=== PATIENT | female | born 1940 | race Hispanic/Latino ===

== ENCOUNTER 2017-06-01 09:49 | Emergency (ER) | payer OTHER ==
[2017-06-01 12:33] LABS: #Basophils 0.1 thou/uL (0.0-0.2); #Eosinphils 0.2 thou/uL (0.0-0.7); #Lymphocytes 2.3 thou/uL (1.20-3.40); #Monocytes 0.5 thou/uL (0.11-0.59); #Neutrophils 5.1 thou/uL (1.40-6.50); %Eosinophils 1.9 % (0.0-10.0); %Lymphocytes 28.5 % (21.0-51.0); %Monocytes 6.5 % (0.0-10.0); Hematocrit 41.8 % (36.0-47.0); Mean Platelet Volume 6.8 fL (7.4-10.4); Red Blood Cell (RBC) Count 4.68 mill/uL (4.20-5.40); White Blood Cell (WBC) Count 8.2 thou/uL (4.8-10.8)
[2017-06-01 13:01] LABS: ALT (SGPT) 20 U/L (8-55); AST (SGOT) 22 U/L (5-34); Alkaline Phosphatase 78 U/L (40-150); Anion Gap 12 mmol/L (10-20); BUN (Urea Nitrogen) 15 mg/dL (9.8-20.1); Bilirubin, Total 0.5 mg/dL (0.2-1.2); Calc. Creatinine Clearance 0 mL/min (70-130); Calcium 9.5 mg/dL (7.8-10.44); Carbon Dioxide 26 mmol/L (23-31); Chloride 103 mmol/L (98-107); Estimated GFR-MDRD 54; Globulin 4.1 g/dL (2.4-3.5); Lipase 89 U/L (8-78)
[2017-06-01 13:47] LABS: Bilirubin Negative (Negative); Blood, Urine Negative (Negative); Glucose, Urine (Dipstick) >=1000 mg/dL (Negative); Ketone, Urine Negative (Negative); Nitrite Negative (Negative); Protein, Urine (Dipstick) Negative (Neg-Trace); Urobilinogen 0.2 mg/dL (0.2-1.0)
[2017-06-01 13:49] LABS: Bacteria/HPF 1+ HPF (None Seen); Hyaline Casts/LPF 0-3 HYALINE CAST LPF (0-3 Hyaline)
--- NOTE | 2017-06-01 14:00 | RAD ---
3 VIEWS RIGHT FOOT: Date: 06/01/17 HISTORY: Wound to bilateral feet. Wounds are turning purple. FINDINGS: Toes are held in flexion, which limits evaluation, but no fracture or dislocation is seen. No defini te osseous destruction is appreciated. Tiny posterior and plantar calcaneal enthesophytes are identi fied. IMPRESSION: No acute osseous abnormality seen. If there is concern for osteomyelitis, MRI is recommended for fur ther evaluation. POS: JOHANN
== END 2017-06-01 14:55 | disposition home or self-care (01) ==
LOC: ERS 09:49
DX: E11.621 Type 2 diabetes mellitus with foot ulcer (principal); N39.0 Urinary tract infection, site not specified; E78.5 Hyperlipidemia, unspecified; I10 Essential (primary) hypertension; F32.9 Major depressive disorder, single episode, unspecified; Z79.899 Other long term (current) drug therapy
CPT/HCPCS: 36416; 80053; 81003; 81015; 82010; 83690; 85025; 87077; 87086

== ENCOUNTER 2019-01-23 11:07 | Emergency (ER) | payer OTHER ==
[2019-01-23 12:10] LABS: #Basophils 0.1 thou/uL (0.0-0.2); #Eosinphils 0.2 thou/uL (0.0-0.7); #Lymphocytes 1.7 thou/uL (1.20-3.40); #Monocytes 0.5 thou/uL (0.11-0.59); #Neutrophils 4.9 thou/uL (1.40-6.50); %Basophils 0.7 % (0.0-1.0); %Eosinophils 2.8 % (0.0-10.0); %Lymphocytes 23.6 % (21.0-51.0); %Monocytes 6.2 % (0.0-10.0); %Neutrophils 66.7 % (42.0-75.0); Hemoglobin 13.6 g/dL (12.0-16.0); Mean Corpuscular HGB CONC 34.5 g/dL (32.0-36.0); Mean Corpuscular Hemoglobin 30.4 pg (27.0-31.0); Mean Corpuscular Volume 88.1 fL (78.0-98.0); Mean Platelet Volume 7.6 fL (7.4-10.4); Platelet Count 350 thou/uL (130-400); RBC Distribution Width 11.6 % (11.5-14.5); Red Blood Cell (RBC) Count 4.46 mill/uL (4.20-5.40); White Blood Cell (WBC) Count 7.4 thou/uL (4.8-10.8)
[2019-01-23 12:32] LABS: ALT (SGPT) 20 U/L (8-55); AST (SGOT) 15 U/L (5-34); Albumin 3.9 g/dL (3.4-4.8); Alkaline Phosphatase 114 U/L (40-150); Anion Gap 13 mmol/L (10-20); BUN (Urea Nitrogen) 20 mg/dL (9.8-20.1); Bilirubin, Total 0.5 mg/dL (0.2-1.2); Calc. Creatinine Clearance 0 mL/min (70-130); Calcium 9.8 mg/dL (7.8-10.44); Carbon Dioxide 24 mmol/L (23-31); Chloride 98 mmol/L (98-107); Estimated GFR-MDRD 40; Globulin 3.7 g/dL (2.4-3.5); Potassium 4.8 mmol/L (3.5-5.1); Protein, Total 7.6 g/dL (6.0-8.3); Sodium 130 mmol/L (136-145)
[2019-01-23 12:42] LABS: Glucose 584 mg/dL (83-110)
[2019-01-23 13:47] LABS: Bilirubin Negative (Negative); Blood, Urine Negative (Negative); Clarity CLEAR (Clear); Glucose, Urine (Dipstick) >=1000 mg/dL (Negative); Leukocyte Negative (Negative); Nitrite Negative (Negative); Protein, Urine (Dipstick) Negative (Neg-Trace); Specific Gravity, Urine 1.028 (1.002-1.036); Urobilinogen 0.2 mg/dL (0.2-1.0)
[2019-01-23] MEDS ORDERED: HumuLIN 70/30 (300 UNITS/3 ML VIAL) SC SCH (15:00)
--- NOTE | 2019-01-28 10:30 | EKG ---
Test Reason : Blood Pressure : / mmHG Vent. Rate : 070 BPM Atrial Rate : 070 BPM P-R Int : 152 ms QRS Dur : 134 ms QT Int : 428 ms P-R-T Axes : 033 -13 -02 degrees QTc Int : 462 ms Normal sinus rhythm Right bundle branch block Moderate voltage criteria for LVH, may be normal variant Abnormal ECG Confirmed by KEVIN CHO ([id number]), script editor OWEN NAPOLES ([id number]) on 01/28/2019 10:29:59 AM Referred By: Confirmed By:KEVIN CHO
== END 2019-01-23 15:24 | disposition home or self-care (01) ==
LOC: ERS 11:07
DX: E11.65 Type 2 diabetes mellitus with hyperglycemia (principal); E78.5 Hyperlipidemia, unspecified; I10 Essential (primary) hypertension; F32.9 Major depressive disorder, single episode, unspecified; Z79.4 Long term (current) use of insulin; Z79.899 Other long term (current) drug therapy
CPT/HCPCS: 36416; 80053; 81003; 84484; 85025; 93005; 96360; 96361; J1815

== ENCOUNTER 2019-03-21 17:06 | Inpatient (IN) | payer OTHER ==
[2019-03-21 18:15] LABS: #Lymphocytes 1.1 thou/uL (1.20-3.40); #Monocytes 0.8 thou/uL (0.11-0.59); #Neutrophils 11.8 thou/uL (1.40-6.50); %Basophils 0.2 % (0.0-1.0); %Eosinophils 0.2 % (0.0-10.0); %Lymphocytes 7.7 % (21.0-51.0); Mean Corpuscular Hemoglobin 29.8 pg (27.0-31.0); Mean Corpuscular Volume 87.7 fL (78.0-98.0); Mean Platelet Volume 7.1 fL (7.4-10.4); Platelet Count 432 thou/uL (130-400); RBC Distribution Width 11.8 % (11.5-14.5); Red Blood Cell (RBC) Count 4.03 mill/uL (4.20-5.40); White Blood Cell (WBC) Count 13.7 thou/uL (4.8-10.8)
[2019-03-21 18:33] LABS: ALT (SGPT) 13 U/L (8-55); AST (SGOT) 13 U/L (5-34); Albumin 3.8 g/dL (3.4-4.8); Alkaline Phosphatase 113 U/L (40-150); Anion Gap 15 mmol/L (10-20); BUN (Urea Nitrogen) 20 mg/dL (9.8-20.1); Bilirubin, Total 0.6 mg/dL (0.2-1.2); Calc. Creatinine Clearance 0 mL/min (70-130); Calcium 9.8 mg/dL (7.8-10.44); Carbon Dioxide 22 mmol/L (23-31); Chloride 94 mmol/L (98-107); Estimated GFR-MDRD 37; Globulin 4.2 g/dL (2.4-3.5); Glucose 513 mg/dL (83-110); Potassium 4.9 mmol/L (3.5-5.1); Sodium 126 mmol/L (136-145)
[2019-03-21] MEDS ORDERED: Piperacillin/Tazobactam 4.5 GM VIAL ONE (18:36)
--- NOTE | 2019-03-21 18:48 | RAD ---
RIGHT FOOT THREE VIEWS: 03/21/2019 HISTORY: Infection of right foot. COMPARISON: None. FINDINGS: There enthesophyte formation at the insertion of the Achilles tendon and at the origin of the plantar aponeurosis. There is no radiopaque foreign body or subcutaneous gas. No displaced fracture or gregoria dence of dislocation is seen. No discrete bone destruction noted. There is atherosclerotic calcification posterior to the distal tibia. IMPRESSION: Chronic findings, as detailed above. No acute fracture or evidence of dislocation. If there is conc mac for osteomyelitis, MRI advised. POS: JOHANN
[2019-03-21] MEDS ORDERED: Vancomycin HCl 1.25 GM in Sodium Chloride 0.9% 250 ML 250 ML IVPB SCH (19:30)
[2019-03-21] MEDS ORDERED: Ondansetron PF 4 MG/2 ML Vial IVP PRN (20:40)
[2019-03-21] MEDS ORDERED: Ondansetron ODT 4 MG TAB PO PRN (20:40)
[2019-03-21] MEDS ORDERED: Acetaminophen 650 MG Suppository PR PRN (20:40)
[2019-03-21] MEDS ORDERED: Dextrose 50% Abboject 50 ML SYRINGE SLOW IVP PRN (20:49)
[2019-03-21] MEDS ORDERED: Dextrose 5% in Water 1,000 ML IV PRN (20:49)
[2019-03-21] MEDS ORDERED: Prevnar 13-Val Conj/PF 0.5 ML SYRINGE IM ONE (21:15)
--- NOTE | 2019-03-21 21:35 | HP ---
PRIMARY CARE DOCTOR: Lucia Mao MD CODE STATUS: Full code. TIME OF EVALUATION: 8:10 pm. CHIEF COMPLAINT: Right 3rd toe swelling. HISTORY OF PRESENT ILLNESS: This is a 78-year-old female patient with past medical history of diabetes type 2, hyperlipidemia, hypertension, came to the hospital after having a right 3rd toe and foot redness, swelling, tenderness, decreased range of motion due to pain. The symptoms started 5 days now and has been gradually getting worse, symptoms are severe. No clear triggers. No alleviating factors. REVIEW OF SYSTEMS: CONSTITUTIONAL: No fever, chills, or generalized weakness. RESPIRATORY: No cough, sputum production, or shortness of breath. CARDIOVASCULAR: No chest pain or palpitation. GASTROINTESTINAL: No nausea, no vomiting. No diarrhea. SCOUT EXECUTIVE: No dizziness, headache, or feeling lightheaded. GENITOURINARY: No burning urination. EXTREMITIES: No leg swelling except for right lower extremity that has right foot redness, swelling, tenderness, and decreased range of motion due to swelling. All other systems were reviewed and negative except for the findings mentioned above. PAST MEDICAL HISTORY: As reported in HPI. PAST SURGICAL HISTORY: The patient has x2. PSYCHIATRIC HISTORY: Depression. SOCIAL HISTORY: No alcohol. No drugs. No smoking history. FAMILY HISTORY: Mother had diabetes. KNOWN ALLERGIES: No known drug allergies. REPORTED MEDICATIONS: Glipizide and lisinopril. PHYSICAL EXAMINATION: VITAL SIGNS: On presentation, blood pressure 134/64 with heart rate 101, respiratory rate was 18, temperature 98.5, pain was 9/10, oxygen saturation was 97% on room air. GENERAL APPEARANCE: The patient is alert, oriented, in no acute distress. HEENT: Eyes, normal conjunctivae. Moist oral mucosa. Anicteric. No JVD. RESPIRATORY: Bilateral air entry. No rales. No wheezes. Symmetric expansion. CARDIOVASCULAR: Normal rate. Regular rhythm. No murmurs. No gallop. No edema. ABDOMEN: Soft. Normal bowel sounds. MUSCULOSKELETAL: Baseline range of motion and strength except for right lower extremity, right foot has redness, swelling, tenderness, decreased range of motion due to pain. SKIN: Warm, intact. No pallor. No rash. No redness except for the findings described in the musculoskeletal. Capillary refill seems to be intact. NEURO: No evidence of any new focal weakness. Cranial nerves seem to be intact. PSYCH: The patient has good mood. No anxiety. Optimal judgment. IMAGING STUDIES: Foot x-rays reported chronic findings as detailed above. No acute fracture or dislocation. There was concern for osteomyelitis. MRI is advised. LABORATORY DATA: Reviewed. The patient has white count 13.7, hemoglobin 12, MCV 87, platelet count 432, ESR 108. Chemistry; sodium 136, potassium 4.9, chloride 94, carbon dioxide 22, anion gap 15, BUN 20, creatinine 1.39, GFR 37, glucose 513, lactic acid 1.5, calcium 9.8, total bilirubin 0.6. LFTs were negative. C-reactive protein 16.42, globulin 4.2, albumin to globulin ratio 0.9. Beta hydroxybutyrate 0.56. ASSESSMENT AND PLAN: The patient will be placed in the hospital with following medical problems: 1. Acute right lower extremity cellulitis, likely secondary to right 3rd toe nonhealing ulcer. The patient has been started on antibiotics. We will continue for now hydration. We will send cultures. We will adjust per sensitivity. 2. Sepsis. The patient has leukocytosis, tachycardia, source is right lower foot cellulitis. The patient is on antibiotics. Treatment as above. 3. Uncontrolled diabetes, blood sugar is 513. The patient has been started on a sliding scale for optimal control. 4. Chronic kidney disease stage 3 with GFR 37. We will continue to monitor kidney function. If any worsening, might need to consult Nephrology. 5. Hyperlipidemia. Low-cholesterol diet is advised. Reconcile home medications. 6. Uncontrolled hypertension. Blood pressure 185/96. Reconcile home medications. We will adjust treatment as needed. 7. Deep venous thrombosis prophylaxis. Job ID: [id number]
[2019-03-21] MEDS: Sodium Chloride 0.9% 1,000 ML IV SCH (22:56)
[2019-03-21] MEDS: HumaLOG 300 UNITS/3 ML VIAL SC PRN (23:18)
[2019-03-22] MEDS: Acetaminophen 325 MG TAB PO PRN (00:42)
[2019-03-22] MEDS: Piperacillin/Tazobactam 3.375 GM in Sodium Chloride 0.9% 100 ML IVPB SCH ×3 (04:03→20:00)
[2019-03-22 06:34] LABS: #Eosinphils 0.3 thou/uL (0.0-0.7); #Lymphocytes 1.8 thou/uL (1.20-3.40); #Monocytes 0.8 thou/uL (0.11-0.59); #Neutrophils 7.2 thou/uL (1.40-6.50); %Basophils 0.5 % (0.0-1.0); %Lymphocytes 17.7 % (21.0-51.0); %Monocytes 7.9 % (0.0-10.0); %Neutrophils 70.9 % (42.0-75.0); Hemoglobin 10.9 g/dL (12.0-16.0); Mean Corpuscular HGB CONC 34.4 g/dL (32.0-36.0); Mean Corpuscular Hemoglobin 30.2 pg (27.0-31.0); Mean Corpuscular Volume 87.8 fL (78.0-98.0); Mean Platelet Volume 7.1 fL (7.4-10.4); Platelet Count 388 thou/uL (130-400); RBC Distribution Width 11.7 % (11.5-14.5); Red Blood Cell (RBC) Count 3.61 mill/uL (4.20-5.40); White Blood Cell (WBC) Count 10.1 thou/uL (4.8-10.8)
[2019-03-22 06:41] LABS: Anion Gap 13 mmol/L (10-20); BUN (Urea Nitrogen) 14 mg/dL (9.8-20.1); Calc. Creatinine Clearance 51 mL/min (70-130); Calcium 8.7 mg/dL (7.8-10.44); Carbon Dioxide 21 mmol/L (23-31); Chloride 106 mmol/L (98-107); Estimated GFR-MDRD 62; Glucose 157 mg/dL (83-110); Potassium 3.9 mmol/L (3.5-5.1); Sodium 136 mmol/L (136-145)
--- NOTE | 2019-03-22 07:37 | PDOC.HOSPP ---
- Subjective Subjective: Patient seen and examined. No new complaints. No overnight events - Objective Vital Signs & Weight: Vital Signs (12 hours) Temp Pulse Resp BP Pulse Ox 03/22/19 04:00 98.5 F 70 16 103/58 L 95 03/22/19 00:40 99.0 F 85 16 147/66 H 97 03/21/19 20:35 97.7 F 88 16 163/74 H 100 Weight Weight 131 lb 14.4 oz I&O: 03/21/19 03/22/19 03/23/19 06:59 06:59 06:59 Intake Total 1050 Balance 1050 Result Diagrams: 03/22/19 05:47 03/22/19 05:47 Additional Labs: Accuchecks 03/22/19 03/21/19 03/21/19 04:49 21:26 17:43 POC Glucose 157 H 312 H 450 H Radiology Reviewed by me: Yes (right foot) ROS - Review of Systems All systems: All other ROS were reviewed and found negative. Constitutional: denies: fever, chills, sweats, weakness, malaise, other Eyes: denies: pain, vision change, conjunctivae inflammation, eyelid inflammation, redness, other ENT: denies: ear pain, ear discharge, nose pain, nose discharge, nose congestion , mouth pain, mouth swelling, throat pain, throat swelling, other Respiratory: denies: cough, dry, shortness of breath, hemoptysis, SOB with excertion, pleuritic pain, sputum, wheezing, other Cardiovascular: denies: chest pain, palpitations, orthopnea, paroxysmal noc. dyspnea, edema, light headedness, other Gastrointestinal: denies: nausea, vomitting, abdominal pain, diarrhea, constipation, melena, hematochezia, other Genitourinary: denies: dysuria, frequency, incontinence, hematuria, retention, other Musculoskeletal: reports: foot pain. denies: neck pain, shoulder pain, arm pain , back pain, hand pain, leg pain, other - Medication Medications: Active Medications Generic Name Dose Route Start Last Admin Trade Name Freq PRN Reason Stop Dose Admin Acetaminophen 650 mg 03/21/19 20:40 03/22/19 00:42 Tylenol PO 650 mg Q4H PRN Administration Headache/Fever/Mild Pain (1-3) Piperacillin Sod/Tazobactam 100 mls @ 200 mls/hr 03/22/19 04:00 03/22/19 04: 03 Sod 3.375 gm/ Sodium Chloride IVPB 100 mls 0400,1200,2000 KIAH Administration Sodium Chloride 1,000 mls @ 75 mls/hr 03/21/19 21:00 03/21/19 22:56 Normal Saline 0.9% IV 1,000 mls .[id number] KIAH Administration Insulin Human Lispro 0 units 03/21/19 23:07 03/21/19 23:18 Humalog SC 4 units .BEDTIME SLIDING SC PRN Administration Bedtime Correctional Scale - Exam NAD, awake alert Eye: PERRL, anicteric sclera ENT: normocephalic atraumatic, no oropharyngeal lesions Neck: supple, symmetric, no JVD Heart: RRR, no murmur, no gallops, no rubs Respiratory: CTAB, no wheezes, no rales, no ronchi Gastrointestinal: soft, non-tender, non-distended, normal bowel sounds Extremities: no cyanosis, no clubbing (right foot cellulitis, 3rd toe ulcer with dressing) Skin: normal turgor, no lesions Neurological: CN's grossly intact, normal sensation to touch, no focal deficits Musculoskeletal: normal tone, normal strength, no muscle wasting Psychiatric: normal affect, normal behavior, A&O x 3 Hosp A/P (1) ELIS (acute kidney injury) Code(s): N17.9 - ACUTE KIDNEY FAILURE, UNSPECIFIED Status: Acute (2) Cellulitis of right lower extremity Code(s): L03.115 - CELLULITIS OF RIGHT LOWER LIMB Status: Acute (3) Diabetic foot infection Code(s): E11.628 - TYPE 2 DIABETES MELLITUS WITH OTHER SKIN COMPLICATIONS; L08.9 - LOCAL INFECTION OF THE SKIN AND SUBCUTANEOUS TISSUE, UNSP Status: Acute (4) Diabetic ulcer of toe Code(s): E11.621 - TYPE 2 DIABETES MELLITUS WITH FOOT ULCER; L97.509 - NON- PRESSURE CHRONIC ULCER OTH PRT UNSP FOOT W UNSP SEVERITY Status: Acute (5) Hyponatremia Code(s): E87.1 - HYPO-OSMOLALITY AND HYPONATREMIA Status: Acute (6) Sepsis Code(s): A41.9 - SEPSIS, UNSPECIFIED ORGANISM Status: Acute (7) Diabetes type 2, uncontrolled Code(s): E11.65 - TYPE 2 DIABETES MELLITUS WITH HYPERGLYCEMIA Status: Chronic (8) Hypertension Code(s): I10 - ESSENTIAL (PRIMARY) HYPERTENSION Status: Chronic - Plan old records reviewed/req, continue antibiotics continue vancomycin and zosyn wound care medication reviewed as above symptomatic treatment follow culture home medication reconciled continue IVF
[2019-03-22] MEDS: Enoxaparin Sodium 40 MG/0.4 ML SYRINGE SC SCH (08:32)
[2019-03-22] MEDS: glipiZIDE 10 MG TAB PO SCH ×2 (08:32→16:25)
[2019-03-22] MEDS: Sodium Chloride 0.9% 1,000 ML IV SCH (11:01)
[2019-03-22] MEDS: HumaLOG 300 UNITS/3 ML VIAL SC PRN ×3 (13:19→20:01)
--- NOTE | 2019-03-22 15:06 | MRI ---
MRI RIGHT FOREFOOT: Date: 03/22/19 PROVIDED CLINICAL HISTORY: Third digit wound. FINDINGS: Correlation is made with radiograph of 03/21/19. There is signal alteration on T1-weighted and fluid sensitive sequences involving the distal aspects of the third digit distal phalanx. This is presumably in the region of patient wound as marked on the skin surface by the technologist, and is therefore suspicious for osteomyelitis. No additional regional significant marrow signal alteration is evident. Alignment appears anatomic. J oint spaces appear preserved. No regional joint effusion is evident. There is diffuse noncircumscribed fluid signal intensity within the subcutaneous adipose layer about the forefoot, predominating dorsally. There is diffuse fatty infiltration involving the intrinsic rob t musculature. No regional tenosynovitis is evident. The dorsal extensor and plantar flexor tendons d emonstrate a grossly intact MR appearance. IMPRESSION: Signal alteration compatible with osteomyelitis involving the third proximal phalanx. POS: TPC
[2019-03-22] MEDS ORDERED: Vancomycin HCl 1 GM in Premix Bag 1 BAG IVPB SCH (21:00)
[2019-03-23] MEDS: Sodium Chloride 0.9% 1,000 ML IV SCH ×2 (01:07→16:28)
[2019-03-23] MEDS: Piperacillin/Tazobactam 3.375 GM in Sodium Chloride 0.9% 100 ML IVPB SCH ×3 (04:13→20:37)
[2019-03-23 10:36] LABS: Hemoglobin A1c 14.7 % (4.0-6.0)
--- NOTE | 2019-03-23 10:50 | CON ---
DATE OF CONSULTATION: HISTORY OF PRESENT ILLNESS: A 78-year-old female, French speaking only, brought in by friend to the emergency room. Admitted for the hospitalist service for a right diabetic foot infection. She has been using saltwater and at home and presents to the emergency room for further intervention. She is admitted 2 days ago. Plain x-rays were equivocal. MRI obtained today with documented osteomyelitis of the proximal third toe right. The patient, however, has gangrene of this right third toe with cellulitis to her lower leg over the dorsum of the foot. She has severe diabetic infection. She has palpable pedal pulses. I spent 45 minutes with a business editor service with the patient explaining the procedure and recommendations for right third toe and adjacent toe amputations indicated to control this infection with osteomyelitis and a deep infection in order to salvage her foot and leg. We spent a long time with her looking through her directory and phone to try to find her family's phone numbers. What phone numbers we have, there were no answers. The only phone number we have is a friend who brought her to the hospital and that friend will be here at 10:00 a.m. to help find the family. The patient will remain n.p.o. Recommendation is amputation of the right third toe and adjacent toes indicated based on operative findings in order to salvage her foot and leg. She had been explained the risks of infection, bleeding, reoperation, wound had to be left open for healing by secondary intention due to the severe infection. ALLERGIES: NONE. SOCIAL HISTORY: Tobacco, none. Alcohol, none. MEDICATIONS: At home: 1. Lisinopril. 2. Glipizide. In the hospital, she has been placed: 1. Vancomycin. 2. Zosyn. PAST SURGICAL HISTORY: 3, para 3, one resulting in a hernia, which she has had for many years. REVIEW OF SYSTEMS: Ten-point noncontributory. PHYSICAL EXAMINATION: VITAL SIGNS: Height 5 feet 8 inches, 131 pounds, BMI 20, temperature 98.7 degrees, pulse 77, respirations 16, blood pressure 149/65. HEAD, EYES, EARS, NOSE, AND THROAT: Unremarkable. LUNGS: Clear to auscultation. CARDIAC: Regular rhythm. No murmur or gallop. ABDOMEN: Soft. Incisional hernia in lower abdomen between the umbilicus and pubis. This is reducible. She has an umbilical hernia. She has a scar infraumbilical from previous . EXTREMITIES: She has palpable femoropopliteal and pedal pulses. She has hair on her feet and toes. Right foot reveals severe cellulitis and edema with cellulitis extending over the dorsum of the foot to the ankle. She has a gangrenous right third toe. She has ulceration and communicates to the bone. The infection involves adjacent cellulitis of the second and fourth toes. LABORATORY DATA: White count 10, hemoglobin 10. Basic metabolic profile normal. Glucose 300 on admission. ASSESSMENT AND PLAN: Severe diabetic infection of right foot without pelvic inflammatory disease. Recommended above-described operation as stated above. I spent a considerable time on the phone with a business editor and trying to call the patient's family without success. We will keep her n.p.o., wait for family contact, and discussion. The patient still states that she wants to go home and use saltwater . I have informed her that the diet has not worked, and that is why she reported to the emergency room. We will await further discussion with the family. Job ID: [id number]
[2019-03-23] MEDS: glipiZIDE 10 MG TAB PO SCH ×2 (12:38→19:12)
[2019-03-23] MEDS: Enoxaparin Sodium 40 MG/0.4 ML SYRINGE SC SCH (12:39)
[2019-03-23] MEDS: HumaLOG 300 UNITS/3 ML VIAL SC PRN ×3 (16:21→20:37)
[2019-03-23 20:25] LABS: Vancomycin, Trough 6.5 ug/mL
--- NOTE | 2019-03-23 21:27 | PDOC.HOSPP ---
- Subjective Encounter Date: 03/23/19 Encounter Time: 10:30 Subjective: Patient seen and examined for diabetic foot infection. Pain controlled. No fever or chills. No other complaints. No overnight events - Objective Vital Signs & Weight: Vital Signs (12 hours) Temp Pulse Resp BP BP Pulse Ox 03/23/19 19:34 99.0 F 97 20 156/65 H 95 03/23/19 11:46 98.2 F 101 H 17 193/79 H 96 Weight Admit Weight 131 lb 14.4 oz Weight 131 lb 14.4 oz I&O: 03/22/19 03/23/19 03/24/19 06:59 06:59 06:59 Intake Total 1050 1095 Balance 1050 1095 Result Diagrams: 03/22/19 05:47 03/22/19 05:47 Additional Labs: Accuchecks 03/23/19 03/23/19 03/23/19 18:36 16:21 11:46 POC Glucose 170 H 214 H 242 H 03/23/19 03/23/19 07:42 04:22 POC Glucose 198 H 174 H Radiology Reviewed by me: Yes (MRI - Osteomyelitis) ROS - Review of Systems Respiratory: denies: cough, dry, shortness of breath, hemoptysis, SOB with excertion, pleuritic pain, sputum, wheezing, other Cardiovascular: denies: chest pain, palpitations, orthopnea, paroxysmal noc. dyspnea, edema, light headedness, other Gastrointestinal: denies: nausea, vomitting, abdominal pain, diarrhea, constipation, melena, hematochezia, other - Medication Medications: Active Medications Generic Name Dose Route Start Last Admin Trade Name Maddy PRN Reason Stop Dose Admin Acetaminophen 650 mg 03/21/19 20:40 03/22/19 00:42 Tylenol PO 650 mg Q4H PRN Administration Headache/Fever/Mild Pain (1-3) Enoxaparin Sodium 40 mg 03/22/19 09:00 03/23/19 12:39 Lovenox SC Not Given 0900 [facility] Glipizide 10 mg 03/22/19 07:30 03/23/19 19:12 Glucotrol PO Not Given BID-AC KIAH Piperacillin Sod/Tazobactam 100 mls @ 200 mls/hr 03/22/19 04:00 08/08/19 20: 37 Sod 3.375 gm/ Sodium Chloride IVPB 100 mls 0400,1200,2000 KIAH Administration Sodium Chloride 1,000 mls @ 75 mls/hr 03/21/19 21:00 03/23/19 16:28 Normal Saline 0.9% IV Not Given .[id number] KIAH Insulin Human Lispro 0 units 03/21/19 23:07 03/23/19 20:37 Humalog SC 3 units .BEDTIME SLIDING SC PRN Administration Bedtime Correctional Scale Insulin Human Lispro 0 units 03/23/19 11:41 03/23/19 19:09 Humalog SC 2 unit .MODERATE SLIDING SC PRN Administration Moderate Correctional Scale - Exam NAD Heart: RRR, no gallops Respiratory: CTAB, no rales Gastrointestinal: soft, non-tender, normal bowel sounds Extremities: no cyanosis, no edema (Edema of R 3rd toe) Hosp A/P (1) Toe osteomyelitis, right Code(s): M86.9 - OSTEOMYELITIS, UNSPECIFIED Status: Acute (2) Cellulitis of right lower extremity Code(s): L03.115 - CELLULITIS OF RIGHT LOWER LIMB Status: Acute (3) Diabetic foot infection Code(s): E11.628 - TYPE 2 DIABETES MELLITUS WITH OTHER SKIN COMPLICATIONS; L08.9 - LOCAL INFECTION OF THE SKIN AND SUBCUTANEOUS TISSUE, UNSP Status: Acute (4) Diabetes type 2, uncontrolled Code(s): E11.65 - TYPE 2 DIABETES MELLITUS WITH HYPERGLYCEMIA Status: Chronic (5) Hypertension Code(s): I10 - ESSENTIAL (PRIMARY) HYPERTENSION Status: Chronic - Plan plan discussed w/ family Cont IV Vancomycin and Zosyn Monitor Vancomycin level Cont Glipizide A1c 14.7 Cont gentle hydration NPO for possible surgery today - Patient undecided
[2019-03-23] MEDS: Vancomycin HCl 750 MG in Sodium Chloride 0.9% 250 ML 250 ML IVPB SCH (21:41)
[2019-03-24] MEDS: Sodium Chloride 0.9% 1,000 ML IV SCH ×3 (03:00→20:18)
[2019-03-24] MEDS: Piperacillin/Tazobactam 3.375 GM in Sodium Chloride 0.9% 100 ML IVPB SCH ×3 (04:00→20:18)
[2019-03-24] MEDS: Enoxaparin Sodium 40 MG/0.4 ML SYRINGE SC SCH (09:04)
[2019-03-24] MEDS: glipiZIDE 10 MG TAB PO SCH ×2 (09:04→17:35)
--- NOTE | 2019-03-24 09:48 | PRG ---
DATE OF SERVICE: 03/23/2019 Ms. Elliott has a severe infection in her foot with osteomyelitis. She has cellulitis to her ankle. She has open wounds in the webspace adjacent to the third toe. She has palpable pedal pulses indicative of absence of PAD. I have recommended she undergo amputation of the third toe and other toes indicated. The patient has been resistant. She states she only came to the hospital because her family insisted. She wants to continue prayer and saltwater treatments and she tells us that she has had similar problems that have responded to that. I discussed I have spent over an hour and a half with the patient using the labor gang supervisor phone with a call in the family members, talking them on the phone, then returned to the patient's bedside in the preoperative area. The patient initially agreed and signed consents for surgery, but when she arrived in the preoperative holding area, she refused surgery and stated she only signed the consents to please her family. She again wants to use prayer and other modalities. Family is at the bedside, her daughter and friends, and they continually talk to her. The patient, however, is talking the whole time, and I have to repeatedly ask her to please listen when I am talking as I have listened to her, she, however, continues to talk over people. She does understand that there is a risk of limb loss and further damage from procrastinating this operation. However, she insists on waiting 2 or 3 days. She initially states she wanted to go home and later states she would like to stay in the hospital. At this point, she refuses surgery as the family does not have power of commercial real estate attorney legal nor medical. There is no other recourse, but allowed her to eat and cancel surgery until she consents. At this point, I will see her as needed. Family seems to be equally as frustrated about the patient's behavior. At this point, I will see her as needed. Please call if necessary. Job ID: [id number]
[2019-03-24] MEDS: Vancomycin HCl 750 MG in Sodium Chloride 0.9% 250 ML 250 ML IVPB SCH ×2 (10:28→21:43)
[2019-03-24] MEDS: HumaLOG 300 UNITS/3 ML VIAL SC PRN ×3 (11:45→20:19)
--- NOTE | 2019-03-24 12:52 | PDOC.HOSPP ---
- Subjective Encounter Date: 03/24/19 Encounter Time: 12:49 Subjective: Patient seen and examined for Osteomyeliits. No fever or chills. Pain controlled No new complaints. No overnight events - Objective Vital Signs & Weight: Vital Signs (12 hours) Temp Pulse Resp BP Pulse Ox 03/24/19 08:00 95 03/24/19 07:25 98.7 F 81 18 147/69 H 95 Weight Admit Weight 131 lb 14.4 oz Weight 131 lb 14.4 oz I&O: 03/23/19 03/24/19 03/25/19 06:59 06:59 06:59 Intake Total 1095 200 Balance 1095 200 Result Diagrams: 03/22/19 05:47 03/22/19 05:47 Additional Labs: Accuchecks 03/24/19 03/23/19 03/23/19 03:44 19:36 18:36 POC Glucose 120 H 251 H 170 H 03/23/19 16:21 POC Glucose 214 H Radiology Reviewed by me: Yes (MRI - Toe Osteomyelitis) ROS - Review of Systems Respiratory: denies: cough, dry, shortness of breath, hemoptysis, SOB with excertion, pleuritic pain, sputum, wheezing, other Cardiovascular: denies: chest pain, palpitations, orthopnea, paroxysmal noc. dyspnea, edema, light headedness, other Gastrointestinal: denies: nausea, vomitting, abdominal pain, diarrhea, constipation, melena, hematochezia, other - Medication Medications: Active Medications Generic Name Dose Route Start Last Admin Trade Name Freq PRN Reason Stop Dose Admin Acetaminophen 650 mg 03/21/19 20:40 03/22/19 00:42 Tylenol PO 650 mg Q4H PRN Administration Headache/Fever/Mild Pain (1-3) Enoxaparin Sodium 40 mg 03/22/19 09:00 03/24/19 09:04 Lovenox SC 40 mg 0900 KIAH Administration Glipizide 10 mg 03/22/19 07:30 03/24/19 09:04 Glucotrol PO 10 mg BID-AC KIAH Administration Piperacillin Sod/Tazobactam 100 mls @ 200 mls/hr 03/22/19 04:00 03/24/19 04: 00 Sod 3.375 gm/ Sodium Chloride IVPB 100 mls 0400,1200,2000 KIAH Administration Vancomycin HCl 750 mg/ Sodium 250 mls @ 250 mls/hr 03/23/19 21:00 03/24/19 10 :28 Chloride IVPB 250 mls Q12HR KIAH Administration Insulin Human Lispro 0 units 03/21/19 23:07 03/23/19 20:37 Humalog SC 3 units .BEDTIME SLIDING SC PRN Administration Bedtime Correctional Scale Insulin Human Lispro 0 units 03/23/19 11:41 03/24/19 11:45 Humalog SC 8 unit .MODERATE SLIDING SC PRN Administration Moderate Correctional Scale - Exam NAD Neck: supple, no JVD Heart: RRR, no gallops Respiratory: CTAB, no wheezes, no ronchi Gastrointestinal: soft, non-tender, normal bowel sounds Extremities: no edema Extremeties - other findings: Rt foot erythema improving, Rt 3rd Toe dressing + Hosp A/P (1) Toe osteomyelitis, right Code(s): M86.9 - OSTEOMYELITIS, UNSPECIFIED Status: Acute (2) Cellulitis of right lower extremity Code(s): L03.115 - CELLULITIS OF RIGHT LOWER LIMB Status: Acute (3) Diabetic foot infection Code(s): E11.628 - TYPE 2 DIABETES MELLITUS WITH OTHER SKIN COMPLICATIONS; L08.9 - LOCAL INFECTION OF THE SKIN AND SUBCUTANEOUS TISSUE, UNSP Status: Acute (4) Diabetes type 2, uncontrolled Code(s): E11.65 - TYPE 2 DIABETES MELLITUS WITH HYPERGLYCEMIA Status: Chronic (5) Hypertension Code(s): I10 - ESSENTIAL (PRIMARY) HYPERTENSION Status: Chronic - Plan Cont IV Vancomycin and Zosyn with Vancomycin level monitoring Cont Glipizide with sliding scale Add Lisinopril Reduce IVF to50 ml/hr Patient refusing surgery Will consult ID for home Atbx recs for Osteomyelitis
[2019-03-24] MEDS: Lisinopril 2.5 MG TAB PO SCH (20:19)
[2019-03-25] MEDS: Piperacillin/Tazobactam 3.375 GM in Sodium Chloride 0.9% 100 ML IVPB SCH ×3 (04:19→19:54)
[2019-03-25] MEDS: HumaLOG 300 UNITS/3 ML VIAL SC PRN ×4 (05:35→19:57)
[2019-03-25] MEDS: Vancomycin HCl 750 MG in Sodium Chloride 0.9% 250 ML 250 ML IVPB SCH ×2 (07:55→21:55)
[2019-03-25] MEDS: Lisinopril 2.5 MG TAB PO SCH ×2 (07:56→19:58)
[2019-03-25] MEDS: Saccharomyces boulardii 250 MG CAP PO SCH (07:56)
[2019-03-25] MEDS: Enoxaparin Sodium 40 MG/0.4 ML SYRINGE SC SCH (07:56)
[2019-03-25] MEDS: glipiZIDE 10 MG TAB PO SCH ×2 (07:56→16:23)
[2019-03-25 09:00] LABS: Vancomycin, Trough 19.3 ug/mL
[2019-03-25] MEDS ORDERED: Lisinopril 2.5 MG TAB PO SCH (09:00)
--- NOTE | 2019-03-25 14:05 | PDOC.HOSPP ---
- Subjective Encounter Date: 03/25/19 Encounter Time: 14:04 Subjective: Patient seen and examined for diabetic foot infection. No fever/chills/N/V. No new complaints. No overnight events - Objective Vital Signs & Weight: Vital Signs (12 hours) Temp Pulse Resp BP BP Pulse Ox 03/25/19 08:00 95 03/25/19 07:56 74 03/25/19 07:42 98.7 F 74 18 128/68 95 03/25/19 04:00 98.6 F 64 16 119/56 L 95 Weight Admit Weight 131 lb 14.4 oz Weight 131 lb 14.4 oz I&O: 03/24/19 03/25/19 03/26/19 06:59 06:59 06:59 Intake Total 1842 Balance 1842 Result Diagrams: 03/22/19 05:47 03/22/19 05:47 Additional Labs: Accuchecks 03/25/19 03/25/19 03/24/19 11:10 04:28 20:00 POC Glucose 316 H 184 H 218 H 03/24/19 03/24/19 16:02 11:12 POC Glucose 268 H 323 H ROS - Review of Systems Respiratory: denies: cough, dry, shortness of breath, hemoptysis, SOB with excertion, pleuritic pain, sputum, wheezing, other Cardiovascular: denies: chest pain, palpitations, orthopnea, paroxysmal noc. dyspnea, edema, light headedness, other - Medication Medications: Active Medications Generic Name Dose Route Start Last Admin Trade Name Freq PRN Reason Stop Dose Admin Acetaminophen 650 mg 03/21/19 20:40 03/22/19 00:42 Tylenol PO 650 mg Q4H PRN Administration Headache/Fever/Mild Pain (1-3) Enoxaparin Sodium 40 mg 03/22/19 09:00 03/25/19 07:56 Lovenox SC 40 mg 0900 KIAH Administration Glipizide 10 mg 03/22/19 07:30 03/25/19 07:56 Glucotrol PO 10 mg BID-AC KIAH Administration Piperacillin Sod/Tazobactam 100 mls @ 200 mls/hr 03/22/19 04:00 03/25/19 11: 27 Sod 3.375 gm/ Sodium Chloride IVPB 100 mls 0400,1200,2000 KIAH Administration Vancomycin HCl 750 mg/ Sodium 250 mls @ 250 mls/hr 03/23/19 21:00 03/25/19 07 :55 Chloride IVPB 250 mls Q12HR KIAH Administration Sodium Chloride 1,000 mls @ 50 mls/hr 03/24/19 12:39 03/24/19 20:18 Normal Saline 0.9% IV 1,000 mls .Q20H KIAH Administration Insulin Human Lispro 0 units 03/21/19 23:07 03/24/19 20:19 Humalog SC 2 units .BEDTIME SLIDING SC PRN Administration Bedtime Correctional Scale Insulin Human Lispro 0 units 03/23/19 11:41 03/25/19 12:02 Humalog SC 8 unit .MODERATE SLIDING SC PRN Administration Moderate Correctional Scale Lisinopril 2.5 mg 03/24/19 21:00 03/25/19 07:56 Zestril PO 2.5 mg BID KIAH Administration Saccharomyces Boulardii 250 mg 03/25/19 09:00 03/25/19 07:56 Florastor PO 250 mg DAILY KIAH Administration - Exam NAD Neck: supple Heart: RRR, no gallops, no rubs Respiratory: CTAB, no rales Gastrointestinal: soft, non-tender, normal bowel sounds Extremities: no cyanosis Extremeties - other findings: Rt foot dressing + Hosp A/P (1) Toe osteomyelitis, right Code(s): M86.9 - OSTEOMYELITIS, UNSPECIFIED Status: Acute (2) Cellulitis of right lower extremity Code(s): L03.115 - CELLULITIS OF RIGHT LOWER LIMB Status: Acute (3) Diabetic foot infection Code(s): E11.628 - TYPE 2 DIABETES MELLITUS WITH OTHER SKIN COMPLICATIONS; L08.9 - LOCAL INFECTION OF THE SKIN AND SUBCUTANEOUS TISSUE, UNSP Status: Acute (4) Diabetes type 2, uncontrolled Code(s): E11.65 - TYPE 2 DIABETES MELLITUS WITH HYPERGLYCEMIA Status: Chronic (5) Hypertension Code(s): I10 - ESSENTIAL (PRIMARY) HYPERTENSION Status: Chronic - Plan DVT proph w/lovenox Cont IV Vancomycin and Zosyn Monitor Vancomycin level Cont Glipizide with sliding scale Cont Lisinopril Cont IVF Patient refusing surgery Await ID input Consult Admitting Manager for uncontrolled DM2 Add NPH 10 units daily Insulin self injection teaching
[2019-03-26] MEDS: Sodium Chloride 0.9% 1,000 ML IV SCH (03:57)
[2019-03-26] MEDS: Piperacillin/Tazobactam 3.375 GM in Sodium Chloride 0.9% 100 ML IVPB SCH ×3 (03:57→20:49)
[2019-03-26] MEDS: glipiZIDE 10 MG TAB PO SCH ×2 (08:02→18:04)
[2019-03-26] MEDS: Lisinopril 2.5 MG TAB PO SCH ×2 (08:04→20:50)
[2019-03-26] MEDS: Saccharomyces boulardii 250 MG CAP PO SCH (08:04)
[2019-03-26] MEDS: Enoxaparin Sodium 40 MG/0.4 ML SYRINGE SC SCH (08:06)
[2019-03-26] MEDS: Vancomycin HCl 750 MG in Sodium Chloride 0.9% 250 ML 250 ML IVPB SCH ×2 (08:09→21:51)
[2019-03-26] MEDS ORDERED: NPH, Human Insulin Isophane 300 UNIT/3 ML VIAL SC SCH (09:00)
[2019-03-26] MEDS: HumaLOG 300 UNITS/3 ML VIAL SC PRN ×2 (12:08→20:50)
--- NOTE | 2019-03-26 15:39 | PDOC.HOSPP ---
- Subjective Encounter Date: 03/26/19 Encounter Time: 13:30 Subjective: Patient seen and examined for diabetic foot infection. No fever/chills. Pain controlled. No new complaints. No overnight events - Objective Vital Signs & Weight: Vital Signs (12 hours) Temp Pulse Resp BP BP Pulse Ox 03/26/19 08:04 62 152/67 H 03/26/19 07:29 98.8 F 62 18 152/67 H 95 Weight Admit Weight 131 lb 14.4 oz Weight 131 lb 14.4 oz I&O: 03/25/19 03/26/19 03/27/19 06:59 06:59 06:59 Intake Total 1842 1316 600 Balance 1842 1316 600 Result Diagrams: 03/22/19 05:47 03/22/19 05:47 Additional Labs: Accuchecks 03/26/19 03/26/19 03/25/19 11:26 04:09 19:50 POC Glucose 383 H 168 H 283 H 03/25/19 15:49 POC Glucose 241 H ROS - Review of Systems Respiratory: denies: cough, dry, shortness of breath, hemoptysis, SOB with excertion, pleuritic pain, sputum, wheezing, other Cardiovascular: denies: chest pain, palpitations, orthopnea, paroxysmal noc. dyspnea, edema, light headedness, other - Medication Medications: Active Medications Generic Name Dose Route Start Last Admin Trade Name Freq PRN Reason Stop Dose Admin Acetaminophen 650 mg 03/21/19 20:40 03/22/19 00:42 Tylenol PO 650 mg Q4H PRN Administration Headache/Fever/Mild Pain (1-3) Enoxaparin Sodium 40 mg 03/22/19 09:00 03/26/19 08:06 Lovenox SC 40 mg 0900 KIAH Administration Glipizide 10 mg 03/22/19 07:30 03/26/19 08:02 Glucotrol PO 10 mg BID-AC KIAH Administration Piperacillin Sod/Tazobactam 100 mls @ 200 mls/hr 03/22/19 04:00 03/26/19 12: 05 Sod 3.375 gm/ Sodium Chloride IVPB 100 mls 0400,1200,2000 KIAH Administration Vancomycin HCl 750 mg/ Sodium 250 mls @ 250 mls/hr 03/23/19 21:00 03/26/19 08 :09 Chloride IVPB 250 mls Q12HR KIAH Administration Sodium Chloride 1,000 mls @ 50 mls/hr 03/24/19 12:39 03/26/19 03:57 Normal Saline 0.9% IV 1,000 mls .Q20H KIAH Administration Insulin Human Lispro 0 units 03/21/19 23:07 03/25/19 19:57 Humalog SC 3 units .BEDTIME SLIDING SC PRN Administration Bedtime Correctional Scale Insulin Human Lispro 0 units 03/23/19 11:41 03/26/19 12:08 Humalog SC 10 unit .MODERATE SLIDING SC PRN Administration Moderate Correctional Scale Insulin Human NPH 10 unit 03/26/19 09:00 03/26/19 09:48 Humulin N SC 10 unit DAILY KIAH Administration Lisinopril 2.5 mg 03/24/19 21:00 03/26/19 08:04 Zestril PO 2.5 mg BID KIAH Administration Saccharomyces Boulardii 250 mg 03/25/19 09:00 03/26/19 08:04 Florastor PO 250 mg DAILY KIAH Administration Sodium Chloride 10 ml 03/25/19 21:00 03/26/19 08:10 Flush - Normal Saline IVF 10 ml Q12HR KIAH Administration - Exam NAD Heart: RRR, no rubs Respiratory: CTAB, no rales Gastrointestinal: soft, non-tender, normal bowel sounds Extremities: no edema (foot dressing +) Neurological: no new deficit Hosp A/P (1) Toe osteomyelitis, right Code(s): M86.9 - OSTEOMYELITIS, UNSPECIFIED Status: Acute (2) Cellulitis of right lower extremity Code(s): L03.115 - CELLULITIS OF RIGHT LOWER LIMB Status: Acute (3) Diabetic foot infection Code(s): E11.628 - TYPE 2 DIABETES MELLITUS WITH OTHER SKIN COMPLICATIONS; L08.9 - LOCAL INFECTION OF THE SKIN AND SUBCUTANEOUS TISSUE, UNSP Status: Acute (4) Diabetes type 2, uncontrolled Code(s): E11.65 - TYPE 2 DIABETES MELLITUS WITH HYPERGLYCEMIA Status: Chronic (5) Hypertension Code(s): I10 - ESSENTIAL (PRIMARY) HYPERTENSION Status: Chronic - Plan Increase NPH 10 units BID Cont IV Atbx (Vancomycin and Zosyn) Monitor Vancomycin level Cont Glipizide with sliding scale Cont Lisinopril Cont IVF @ 50 ml/hr Await ID input AM labs
--- NOTE | 2019-03-26 18:20 | CON ---
DATE OF CONSULTATION: 03/26/2019 REASON FOR CONSULTATION: Right third toe osteomyelitis. HISTORY OF PRESENT ILLNESS: A 78-year-old with history of type 2 diabetes and hypertension, who was admitted with right third toe inflammatory changes. MRI showed osteomyelitis. Plain films without overt osteolysis. Amputation was offered. The patient has declined thus far. No headaches, visual symptoms, sore throat, odynophagia, dysphagia. No cough, sputum production, or chest pain. No abdominal pain or diarrhea. No genitourinary symptoms. PAST MEDICAL HISTORY: Type 2 diabetes and hypertension. PAST SURGICAL HISTORY: and hernia repair. SOCIAL HISTORY: She rents a room in town apparently under threat of becoming homeless because of the landlord does not want to take her back. Has one daughter in town, but daughter has mental issues and being managed with [facility] supervision. Never smoker. No alcoholic beverage use. FAMILY HISTORY: Type 2 diabetes. ALLERGIES: NONE. CURRENT MEDICATION PROFILE: 1. Tylenol. 2. Dextrose. 3. Lovenox. 4. Glucotrol. 5. Apresoline. 6. Humalog insulin. 7. Zestril. 8. Zosyn. 9. Vancomycin. PHYSICAL EXAMINATION: VITAL SIGNS: T-max 100.3, blood pressure 150/67, pulse 62, and O2 saturation 95 %. SKIN: Shows the area of inflammatory change in the right third toe with an ulcer at the dorsal aspect of the proximal interphalangeal joint. There is erythema surrounding the dorsal aspect of the right foot all the way to the midfoot region. There is necrotic discoloration of the dorsal aspect of the third toe skin. No lymphadenopathy. HEENT: Noncontributory. NECK: Supple. LUNGS: Symmetric. Clear breath sounds. HEART: S1 and S2, regular rate. No S3 or S4. ABDOMEN: Soft, not distended or tender. No ascites. No bladder distention. MUSCULOSKELETAL: No other joint inflammatory process. Pulses are 2+ in dorsalis pedis. Cap refill normal. NEUROLOGIC: Nonfocal. LABORATORY DATA: White cell count 13.7 and 10.1, hemoglobin 10.9, platelets 388. Creatinine 0.89, sodium 136. Liver profile normal. CRP 16.42, albumin 3.8. Microbiology with group B strep and methicillin-sensitive Staphylococcus aureus retrieved from the ulcer. ASSESSMENT: Type 2 diabetes, osteomyelitis of the third toe with likely septic arthritis. DISCUSSION: Although the vascular supply is adequate and there is no obvious overt bone destruction, I believe the ulcer penetrates straight into the proximal interphalangeal joint and I do not think it is amenable to conservative treatment. I advised amputation of the third toe at this point in time. The patient seems to be amenable to it, so I would reconsult the surgeon for that procedure. Job ID: [id number] MTDD
[2019-03-26 20:31] LABS: Vancomycin, Trough 15.4 ug/mL
[2019-03-26] MEDS: NPH, Human Insulin Isophane 300 UNIT/3 ML VIAL SC SCH (20:52)
[2019-03-27] MEDS: Piperacillin/Tazobactam 3.375 GM in Sodium Chloride 0.9% 100 ML IVPB SCH ×2 (03:53→11:38)
[2019-03-27] MEDS: Sodium Chloride 0.9% 1,000 ML IV SCH ×2 (03:56→15:30)
[2019-03-27 06:50] LABS: #Basophils 0.1 thou/uL (0.0-0.2); #Eosinphils 0.4 thou/uL (0.0-0.7); #Lymphocytes 1.7 thou/uL (1.20-3.40); #Monocytes 0.7 thou/uL (0.11-0.59); #Neutrophils 4.1 thou/uL (1.40-6.50); %Eosinophils 5.9 % (0.0-10.0); %Lymphocytes 24.4 % (21.0-51.0); %Monocytes 10.4 % (0.0-10.0); %Neutrophils 58.3 % (42.0-75.0); Hemoglobin 10.8 g/dL (12.0-16.0); Mean Corpuscular HGB CONC 32.4 g/dL (32.0-36.0); Mean Corpuscular Hemoglobin 28.6 pg (27.0-31.0); Mean Corpuscular Volume 88.3 fL (78.0-98.0); Mean Platelet Volume 6.2 fL (7.4-10.4); Platelet Count 531 thou/uL (130-400); RBC Distribution Width 11.9 % (11.5-14.5); Red Blood Cell (RBC) Count 3.75 mill/uL (4.20-5.40)
[2019-03-27 07:10] LABS: Anion Gap 11 mmol/L (10-20); BUN (Urea Nitrogen) 9 mg/dL (9.8-20.1); Calc. Creatinine Clearance 48 mL/min (70-130); Calcium 8.5 mg/dL (7.8-10.44); Carbon Dioxide 26 mmol/L (23-31); Chloride 107 mmol/L (98-107); Estimated GFR-MDRD 57; Glucose 181 mg/dL (83-110); Sodium 140 mmol/L (136-145)
[2019-03-27] MEDS: Saccharomyces boulardii 250 MG CAP PO SCH (08:55)
[2019-03-27] MEDS: Enoxaparin Sodium 40 MG/0.4 ML SYRINGE SC SCH (08:55)
[2019-03-27] MEDS: glipiZIDE 10 MG TAB PO SCH ×2 (08:55→17:39)
[2019-03-27] MEDS: Lisinopril 2.5 MG TAB PO SCH ×2 (08:55→21:25)
[2019-03-27] MEDS: NPH, Human Insulin Isophane 300 UNIT/3 ML VIAL SC SCH ×2 (08:56→17:40)
[2019-03-27] MEDS: Vancomycin HCl 750 MG in Sodium Chloride 0.9% 250 ML 250 ML IVPB SCH ×2 (08:56→21:25)
[2019-03-27] MEDS: HumaLOG 300 UNITS/3 ML VIAL SC PRN (11:46)
--- NOTE | 2019-03-27 14:39 | PDOC.HOSPP ---
- Subjective Encounter Date: 03/27/19 (f/u osteomyelitis) Encounter Time: 14:38 Subjective: With the hospital mexican food machine tender system - pt reports not much pain, denies any concerns. - Objective Vital Signs & Weight: Vital Signs (12 hours) Temp Pulse Resp BP BP BP Pulse Ox 03/27/19 11:00 98.1 F 76 18 184/64 H 96 03/27/19 08:55 65 194/69 H 03/27/19 07:45 98.4 F 65 18 194/69 H 94 L Weight Admit Weight 131 lb 14.4 oz Weight 131 lb 14.4 oz I&O: 03/26/19 03/27/19 03/28/19 06:59 06:59 06:59 Intake Total 1316 3787 240 Balance 1316 3787 240 Result Diagrams: 03/27/19 06:31 03/27/19 06:31 Additional Labs: Accuchecks 03/27/19 03/27/19 03/27/19 11:46 04:22 02:02 POC Glucose 313 H 82 83 03/26/19 03/26/19 20:17 15:45 POC Glucose 246 H 132 H ROS - Medication Medications: Active Medications Generic Name Dose Route Start Last Admin Trade Name Freq PRN Reason Stop Dose Admin Acetaminophen 650 mg 03/21/19 20:40 03/22/19 00:42 Tylenol PO 650 mg Q4H PRN Administration Headache/Fever/Mild Pain (1-3) Enoxaparin Sodium 40 mg 03/22/19 09:00 03/27/19 08:55 Lovenox SC 40 mg 0900 KIAH Administration Glipizide 10 mg 03/22/19 07:30 03/27/19 08:55 Glucotrol PO 10 mg BID-AC KIAH Administration Piperacillin Sod/Tazobactam 100 mls @ 200 mls/hr 03/22/19 04:00 03/27/19 11: 38 Sod 3.375 gm/ Sodium Chloride IVPB 100 mls 0400,1200,2000 KIAH Administration Vancomycin HCl 750 mg/ Sodium 250 mls @ 250 mls/hr 03/23/19 21:00 03/27/19 08 :56 Chloride IVPB 250 mls Q12HR KIAH Administration Sodium Chloride 1,000 mls @ 50 mls/hr 03/24/19 12:39 03/27/19 03:56 Normal Saline 0.9% IV Not Given .Q20H KIAH Insulin Human Lispro 0 units 03/21/19 23:07 03/26/19 20:50 Humalog SC 2 units .BEDTIME SLIDING SC PRN Administration Bedtime Correctional Scale Insulin Human Lispro 0 units 03/23/19 11:41 03/27/19 11:46 Humalog SC 8 unit .MODERATE SLIDING SC PRN Administration Moderate Correctional Scale Insulin Human NPH 10 unit 03/26/19 21:00 03/27/19 08:56 Humulin N SC 10 unit BID KIAH Administration Lisinopril 2.5 mg 03/24/19 21:00 03/27/19 08:55 Zestril PO 2.5 mg BID KIAH Administration Saccharomyces Boulardii 250 mg 03/25/19 09:00 03/27/19 08:55 Florastor PO 250 mg DAILY KIAH Administration Sodium Chloride 10 ml 03/25/19 21:00 03/27/19 08:57 Flush - Normal Saline IVF 10 ml Q12HR KIAH Administration - Exam NAD Heart: RRR, no murmur, no gallops Respiratory: CTAB, no wheezes, no rales, no ronchi Gastrointestinal: soft, non-tender, non-distended, normal bowel sounds Neurological - other findings: right 3rd toe - necrosis, violaceous foot with edema involving other toes Psychiatric - other findings: pt is tangential, not answering questions Hosp A/P (1) Toe osteomyelitis, right Code(s): M86.9 - OSTEOMYELITIS, UNSPECIFIED Status: Acute (2) Diabetic foot infection Code(s): E11.628 - TYPE 2 DIABETES MELLITUS WITH OTHER SKIN COMPLICATIONS; L08.9 - LOCAL INFECTION OF THE SKIN AND SUBCUTANEOUS TISSUE, UNSP Status: Chronic (3) Diabetes type 2, uncontrolled Code(s): E11.65 - TYPE 2 DIABETES MELLITUS WITH HYPERGLYCEMIA Status: Chronic Qualifiers: Glycemic state: with hyperglycemia Qualified Code(s): E11.65 - Type 2 diabetes mellitus with hyperglycemia (4) Hypertension Code(s): I10 - ESSENTIAL (PRIMARY) HYPERTENSION Status: Chronic Qualifiers: Hypertension type: essential hypertension Qualified Code(s): I10 - Essential (primary) hypertension (5) Hernia Code(s): K46.9 - UNSPECIFIED ABDOMINAL HERNIA WITHOUT OBSTRUCTION OR GANGRENE Status: Chronic - Plan In the time spent with patient - approx 10-15 mintues with a mexican food machine tender, pt is not able to demonstrate capacity for decision making. Is not able to repeat diagnosis or treatment thus far after I explained to her twice in different ways. She states it will heal with God's hand, and wants to use salt water. But again, cannot tell me that foot is infected, and what the recommendations have been thus far. Because of this - requested [facility] evaluate the patient for medical decision making capability and ethics consult placed DM - not optimally controlled. Change NPH to with meals, add metformin and continue glipizide HTN - not controlled - add amlodipine and continue lisinopril HLP - not on meds - will add during this hospitalization - hold for now as I am adding 2 new meds today for conditions listed above abd hernias - reducible/asx dvt prophy - lovenox gi prophy - not indicated code status full reviewed plan of care wiht patient in Romansh/through mexican food machine tender, but she does not demonstrate understanding. Family not available at this time.
[2019-03-27] MEDS ORDERED: Amlodipine 5 MG TAB PO SCH (15:00)
[2019-03-27] MEDS ORDERED: metFORMIN 500 MG TAB PO SCH (15:00)
[2019-03-28] MEDS: Piperacillin/Tazobactam 3.375 GM in Sodium Chloride 0.9% 100 ML IVPB SCH ×3 (00:09→09:34)
[2019-03-28] MEDS: hydrALAZINE 20 MG/ML VIAL SLOW IVP PRN (00:10)
--- NOTE | 2019-03-28 02:20 | PDOC.EVN ---
Event Note - Event Note Event Note: Nursing called to discuss C&S from foot wound; per Dr. Terrell, will leave to primary on day team to de-escalate antibiotic coverage.
[2019-03-28 08:12] LABS: #Eosinphils 0.4 thou/uL (0.0-0.7); #Monocytes 0.5 thou/uL (0.11-0.59); #Neutrophils 5.5 thou/uL (1.40-6.50); %Basophils 0.6 % (0.0-1.0); %Lymphocytes 23.2 % (21.0-51.0); %Monocytes 6.2 % (0.0-10.0); Hemoglobin 12.9 g/dL (12.0-16.0); Mean Corpuscular HGB CONC 33.1 g/dL (32.0-36.0); Mean Corpuscular Hemoglobin 29.6 pg (27.0-31.0); Mean Corpuscular Volume 89.4 fL (78.0-98.0); Mean Platelet Volume 6.2 fL (7.4-10.4); Platelet Count 643 thou/uL (130-400); RBC Distribution Width 12.3 % (11.5-14.5); Red Blood Cell (RBC) Count 4.37 mill/uL (4.20-5.40); White Blood Cell (WBC) Count 8.5 thou/uL (4.8-10.8)
[2019-03-28 08:31] LABS: Vancomycin, Trough 18.6 ug/mL
[2019-03-28 08:39] LABS: Anion Gap 13 mmol/L (10-20); BUN (Urea Nitrogen) 8 mg/dL (9.8-20.1); Calc. Creatinine Clearance 53 mL/min (70-130); Calcium 9.9 mg/dL (7.8-10.44); Carbon Dioxide 24 mmol/L (23-31); Chloride 107 mmol/L (98-107); Estimated GFR-MDRD 65; Glucose 117 mg/dL (83-110); Potassium 4.2 mmol/L (3.5-5.1); Sodium 140 mmol/L (136-145)
[2019-03-28] MEDS: glipiZIDE 10 MG TAB PO SCH ×2 (09:33→17:08)
[2019-03-28] MEDS: NPH, Human Insulin Isophane 300 UNIT/3 ML VIAL SC SCH (09:33)
[2019-03-28] MEDS: metFORMIN 500 MG TAB PO SCH (09:34)
[2019-03-28] MEDS: Amlodipine 5 MG TAB PO SCH (09:35)
[2019-03-28] MEDS: Lisinopril 2.5 MG TAB PO SCH ×2 (09:36→20:07)
[2019-03-28] MEDS: Enoxaparin Sodium 40 MG/0.4 ML SYRINGE SC SCH (09:36)
[2019-03-28] MEDS: Saccharomyces boulardii 250 MG CAP PO SCH (09:37)
[2019-03-28] MEDS: Vancomycin HCl 750 MG in Sodium Chloride 0.9% 250 ML 250 ML IVPB SCH (09:38)
--- NOTE | 2019-03-28 09:59 | PDOC.PALCO ---
Palliative Care Consult - Consult Details Requesting Physician: Dr Marks Reason for Consult: assistance with communication prognosis/disease, complex decision-making Family Members Present: none - Pertinent HPI 78 year old female who presented to the emergency room with increase in redness , tenderness, and swelling to right third toe. Patient presented to the emergency room 03/21 and symptoms had been present for 5 days as per patient. Admitted with cellulitis to right third toe, elevated glucose, hypertension, renal disease. - Pertinent PMH diabetes, hypertension, hyperlipidemia - Social History Smoking Status: Never smoker Smoking: no tobacco exposure Alcohol Use: none Drug Use History: none Living Situation: other (Patient lives with a family friend, however may not be an option at discharge) - Medications MAR Reviewed: Yes - Allergies Allergies/Adverse Reactions: Allergies Allergy/AdvReac Type Severity Reaction Status Date / Time No Known Allergies Allergy Verified 03/21/19 21:04 - Subjective Awake, alert. Nepali speaking. Patient denies any complaints with the exception of minimal pain to right third toe. ROS: Negative to all systems with the exception of mild pain to the right third toe - Objective Vital Signs: Vital Signs - Most Recent Temp Pulse Resp BP Pulse Ox 98.0 F 112 H 20 119/65 97 03/28/19 08:00 03/28/19 09:36 03/28/19 08:00 03/28/19 09:36 03/28/19 08:00 Palliative Performance Scale: 40 - Physical Exam Constitutional: confusion Deviation from normal: Poor dentition HEENT: moist MMs, sclera anicteric, EOMI Respiratory: clear to auscultation bilateral, unlabored breathing Cardiovascular: RRR Gastrointestinal: soft, positive bowel sounds Deviation from normal: Hernia to mid lower abdomen, mild tenderness with palpation Musculoskeletal: no edema Deviation from normal: Right foot, related to cellulitis Neurological: moves all 4 limbs Psychiatric: normal affect Deviation from normal: necrotic right third toe, erythema and edema to right foot - Problem List (1) Palliative care encounter Code(s): Z51.5 - ENCOUNTER FOR PALLIATIVE CARE Current Visit: Yes Status: Acute (2) Encounter for evaluation of ability to make decisions regarding care Code(s): Z02.79 - ENCOUNTER FOR ISSUE OF OTHER MEDICAL CERTIFICATE Current Visit: Yes Status: Acute (3) Cellulitis of right lower extremity Code(s): L03.115 - CELLULITIS OF RIGHT LOWER LIMB Current Visit: Yes Status : Acute (4) Toe osteomyelitis, right Code(s): M86.9 - OSTEOMYELITIS, UNSPECIFIED Current Visit: Yes Status: Acute - Plan/Recommendations Plan: Utilized the heel slicker service via audio to discuss infection of right third toe, disease process, outcomes, and implications of management of toe with surgery/IV antibiotics verses discharge home. Elizabeth with heel slicker services. Sherin Gomez present as well. Attempted to discuss the followin) Ability to understand the information relevant to the decision related to the infection to the right third toe. Patient states "it is related to her sugars" information given in various ways, patient not able to communicate back the information provided. 2) Retain information Patient was unable to retain/comprehend the information given related to need for surgery to manage infection, outcomes if infection was left untreated and impact of diabetes and cardiovascular disease. Patient was asked to repeat back information given and was unable to do so. 3)Weigh information Ms Elliott lacked the ability to weight the risk of not treating verses treating with surgery to the right third toe 4) Communicate her decision Ms Elliott believes that going home, waiting a "few more days" and putting vicks and Vaseline/soaking in water will treat/heal her toe. Regardless of how information was given to patient she was unable to give rational to not treating medically with surgery in the hospital and continuing antibiotics verses home and using her above mentioned interventions. Ms Elliott lacks the medical capacity to make a decision related to her health care. A family meeting has been arranged at 11:30 with one of the patients daughters to further discuss. Dr Kendrick robert. [90] minutes spent on this encounter with >50% of the time in counseling and coordination of care. Thank you for this very appropriate consult.
--- NOTE | 2019-03-28 11:23 | PDOC.PALCO ---
Palliative Care Consult - Allergies Allergies/Adverse Reactions: Allergies Allergy/AdvReac Type Severity Reaction Status Date / Time No Known Allergies Allergy Verified 03/21/19 21:04 - Objective Vital Signs: Vital Signs - Most Recent Temp Pulse Resp BP Pulse Ox 98.0 F 112 H 20 119/65 97 03/28/19 08:00 03/28/19 09:36 03/28/19 08:00 03/28/19 09:36 03/28/19 08:00 - Problem List (1) Palliative care encounter Code(s): Z51.5 - ENCOUNTER FOR PALLIATIVE CARE Current Visit: Yes Status: Acute (2) Encounter for evaluation of ability to make decisions regarding care Code(s): Z02.79 - ENCOUNTER FOR ISSUE OF OTHER MEDICAL CERTIFICATE Current Visit: Yes Status: Acute (3) Cellulitis of right lower extremity Code(s): L03.115 - CELLULITIS OF RIGHT LOWER LIMB Current Visit: Yes Status : Acute (4) Toe osteomyelitis, right Code(s): M86.9 - OSTEOMYELITIS, UNSPECIFIED Current Visit: Yes Status: Acute - Plan/Recommendations Plan: [] minutes spent on this encounter with >50% of the time in counseling and coordination of care. Thank you for this very appropriate consult.
[2019-03-28] MEDS ORDERED: NPH, Human Insulin Isophane 300 UNIT/3 ML VIAL SC SCH (11:48)
--- NOTE | 2019-03-28 12:15 | PDOC.PALF ---
Purpose of Conference: Discuss patients medical capacity to make a decision and need for surgery and continued iv antibiotics to promote healing to infection of right third toe. Care Providers Present: Dr Marks, Mars Gomez RNplate filler, myself Family Members Present: Patient and daughter Monie Brown Meeting Comments: Discussed with daughter need for surgical intervention and patients lack of capacity to make a decision. Daughter Monie states that she and her brother and other sister Carla are all in agreement for surgical intervention for patient. Mars Gomez has been in contact with daughter Carla. Sherin will contact Carla and obtain MPOA. Goals of Care: Surgical intervention to right third toe Summary: Dr Mraks to make surgery consult, Mars Gomez RN to obtain MPOA, Palliative Care team to continue to support family and patient prior to surgery and post as the location patient was living prior to the admission is no longer an option upon discharge. Total Time Spent with Family: 60 min
[2019-03-28] MEDS: HumaLOG 300 UNITS/3 ML VIAL SC PRN ×2 (12:31→17:11)
[2019-03-28] MEDS: cefTRIAXone\\ROCEPHIN 2 GM in Sodium Chloride 0.9% 100 ML IVPB SCH (13:59)
--- NOTE | 2019-03-28 16:15 | PDOC.HOSPP ---
- Subjective Encounter Date: 03/28/19 (f/u osteomyelitis) Encounter Time: 11:30 Subjective: Pt without complaints today. Denies any significant pain, n/v. Reports some chest discomfort that she says happens when she worries. - Objective Vital Signs & Weight: Vital Signs (12 hours) Temp Pulse Resp BP BP Pulse Ox 03/28/19 09:36 112 H 119/65 03/28/19 09:35 112 H 119/65 03/28/19 08:00 98.0 F 112 H 20 119/65 97 Weight Admit Weight 131 lb 14.4 oz Weight 131 lb 14.4 oz I&O: 03/27/19 03/28/19 03/29/19 06:59 06:59 06:59 Intake Total 3787 2840 Balance 3787 2840 Result Diagrams: 03/28/19 07:54 03/28/19 07:54 Additional Labs: Accuchecks 03/28/19 03/28/19 03/28/19 11:58 04:28 02:05 POC Glucose 264 H 119 H 103 03/27/19 03/27/19 20:02 16:57 POC Glucose 183 H 159 H ROS - Medication Medications: Active Medications Generic Name Dose Route Start Last Admin Trade Name Freq PRN Reason Stop Dose Admin Acetaminophen 650 mg 03/21/19 20:40 03/22/19 00:42 Tylenol PO 650 mg Q4H PRN Administration Headache/Fever/Mild Pain (1-3) Amlodipine Besylate 5 mg 03/28/19 09:00 03/28/19 09:35 Norvasc PO 5 mg DAILY KIAH Administration Enoxaparin Sodium 40 mg 03/22/19 09:00 03/28/19 09:36 Lovenox SC 40 mg 09 KIAH Administration Glipizide 10 mg 03/22/19 07:30 03/28/19 09:33 Glucotrol PO 10 mg BID-AC KIAH Administration Hydralazine HCl 10 mg 03/21/19 20:51 03/28/19 00:10 Apresoline SLOW IVP 10 mg Q4H PRN Administration sbp>160 Sodium Chloride 1,000 mls @ 50 mls/hr 03/24/19 12:39 03/27/19 15:30 Normal Saline 0.9% IV 1,000 mls .Q20H KIAH Administration Ceftriaxone Sodium 2 gm/ 100 mls @ 200 mls/hr 03/28/19 12:00 03/28/19 13:59 Sodium Chloride IVPB 100 mls Q24HR KIA[facility] Administration Insulin Human Lispro 0 units 03/21/19 23:07 03/26/19 20:50 Humalog SC 2 units .BEDTIME SLIDING SC PRN Administration Bedtime Correctional Scale Insulin Human Lispro 0 units 03/23/19 11:41 03/28/19 12:31 Humalog SC 6 unit .MODERATE SLIDING SC PRN Administration Moderate Correctional Scale Lisinopril 2.5 mg 03/24/19 21:00 03/28/19 09:36 Zestril PO 2.5 mg BID KIAH Administration Metformin HCl 500 mg 03/28/19 08:00 03/28/19 09:34 Glucophage PO 500 mg QAM-WM KIAH Administration Saccharomyces Boulardii 250 mg 03/25/19 09:00 03/28/19 09:37 Florastor PO 250 mg DAILY KIAH Administration Sodium Chloride 10 ml 03/25/19 21:00 03/28/19 09:51 Flush - Normal Saline IVF Not Given Q12HR KIAH - Exam NAD Heart: RRR, no murmur, no gallops, no rubs Respiratory: CTAB, no wheezes, no rales, no ronchi Gastrointestinal: soft, non-tender, non-distended, normal bowel sounds Extremeties - other findings: unchanged - edema/necrosis of left 3rd toe/ surrounding erythema/edema Psychiatric - other findings: alert, oriented to person, but not situation Hosp A/P (1) Toe osteomyelitis, right Code(s): M86.9 - OSTEOMYELITIS, UNSPECIFIED Status: Acute (2) Diabetic foot infection Code(s): E11.628 - TYPE 2 DIABETES MELLITUS WITH OTHER SKIN COMPLICATIONS; L08.9 - LOCAL INFECTION OF THE SKIN AND SUBCUTANEOUS TISSUE, UNSP Status: Chronic (3) Diabetes type 2, uncontrolled Code(s): E11.65 - TYPE 2 DIABETES MELLITUS WITH HYPERGLYCEMIA Status: Chronic Qualifiers: Glycemic state: with hyperglycemia Qualified Code(s): E11.65 - Type 2 diabetes mellitus with hyperglycemia (4) Hypertension Code(s): I10 - ESSENTIAL (PRIMARY) HYPERTENSION Status: Chronic Qualifiers: Hypertension type: essential hypertension Qualified Code(s): I10 - Essential (primary) hypertension (5) Hernia Code(s): K46.9 - UNSPECIFIED ABDOMINAL HERNIA WITHOUT OBSTRUCTION OR GANGRENE Status: Chronic - Plan Appreciate Palliative care evaluation and working with family. My assessment today is unchanged- pt does not have capacity for decision making. medical power of magneto specialist to be assigned - [facility] care working on this. Dr. Sanchez will see the patient, however will not plan for surgery until this is finalized. I do not expect antibiotics alone to heal. DM - controlled. Will slightly decrease the NPH and monitor. If/when a plan for surgery, will need to hold glipizide. Appreciate ID consult - abx changed to ceftriaxone. HTN - not controlled - meds adjusted yesterday - amlodipine added and continue lisinopril, monitor for response HLP - not on meds - anticipate pt will benefit from this - consider adding this prior to discharge. abd hernias - reducible/asx dvt prophy - lovenox gi prophy - not indicated code status full reviewed plan of care with family present at family meeting. No questions or further needs at end of eval.
[2019-03-28] MEDS: Sodium Chloride 0.9% 1,000 ML IV SCH (17:31)
[2019-03-29] MEDS: Lisinopril 2.5 MG TAB PO SCH ×2 (08:59→20:34)
[2019-03-29] MEDS: metFORMIN 500 MG TAB PO SCH (08:59)
[2019-03-29] MEDS: Enoxaparin Sodium 40 MG/0.4 ML SYRINGE SC SCH (08:59)
[2019-03-29] MEDS: Saccharomyces boulardii 250 MG CAP PO SCH (09:00)
[2019-03-29] MEDS: glipiZIDE 10 MG TAB PO SCH ×2 (09:00→16:42)
[2019-03-29] MEDS: Amlodipine 5 MG TAB PO SCH (09:00)
[2019-03-29] MEDS: HumaLOG 300 UNITS/3 ML VIAL SC PRN (12:35)
[2019-03-29] MEDS: cefTRIAXone\\ROCEPHIN 2 GM in Sodium Chloride 0.9% 100 ML IVPB SCH (12:45)
--- NOTE | 2019-03-29 13:54 | PQF ---
CLINICAL DOCUMENTATION IMPROVEMENT CLARIFICATION FORM: ICD-10 Updated PLEASE DO AN ADDENDUM TO THE PROGRESS NOTE WITH ANY DOCUMENTATION UPDATES OR ADDITIONS AND CARRY THROUGH TO DC SUMMARY. THANK YOU. DATE: 03/29/19 ATTN: DR. PONCE Please exercise your independent, professional judgment in responding to the clarification form. Clinical indicators are provided on the bottom of this form for your review Please check appropriate box(s) to clarify if the following diagnosis has been ruled in or ruled out: "SEPSIS" [ XX ] Ruled in diagnosis [ ] Continue to treat [ XX] Resolved [ ] Ruled out diagnosis [ ] Cannot rule out diagnosis [ ] Other diagnosis [ ] Unable to determine In addition, please specify: Present on Admission (POA): [ XX ] Yes [ ] No [ ] Unable to determine For continuity of documentation, please document condition throughout progress notes and discharge summary. Thank You. CLINICAL INDICATORS - SIGNS / SYMPTOMS / LABS ER NOTE: "SEPSIS" H&P: "SEPSIS" WBC 13.7 CRP 16.42 PULSE 101 RISKS: DIABETIC FOOT ULCER WITH OSTEOMYELITIS TREATMENT: IV VANCOMYCIN (ER) IV FLUIDS (ER-PRESENT) IV ZOSYN (ER) IV ROCEPHIN (03/28-PRESENT) BLOOD CULTURES SERIAL LABS (This form is maintained as a part of the permanent medical record) 2014 [employer], [employer]. All Rights Reserved [email or web address] [email or web address] Office: [phone] [facility]
--- NOTE | 2019-03-29 15:28 | PDOC.HOSPP ---
- Subjective Encounter Date: 03/29/19 (f/u osteomyelitis) Encounter Time: 15:27 Subjective: Summary: 78 y/o female admitted for worsening redness/swelling/pain in her right foot/3rd toe. During this hospitalization pt has been dx with osteomyelitis and started on broad spectrum antibiotics. She consented for amputation with Dr. Weston however declined surgery twice. She has been seen by Dr. Lino and antibiotics narrowed to Rocephin. 2 days ago through discussion with patient using the hospital macaroni maker system for [place], the patient was unable to demonstrate understanding of condition, recommendations for treatment and consequences of declining surgery. Palliative Care re- evaluated the patient yesterday and also finds the patient does not have capacity for decision making. Family has been notified, a surrogate decision maker assigned by the 3 children. Today - Pt is without complaints, denies any pain. Denies any n/v/abd pain. Pt 's daughter Monie is present. - Objective Vital Signs & Weight: Vital Signs (12 hours) Temp Pulse Resp BP BP Pulse Ox 03/29/19 09:00 71 03/29/19 08:59 71 03/29/19 08:00 96 03/29/19 07:14 98.7 F 71 18 133/67 93 L 03/29/19 04:53 99.1 F 72 20 153/68 H 93 L Weight Admit Weight 131 lb 14.4 oz Weight 131 lb 14.4 oz I&O: 03/28/19 03/29/19 03/30/19 06:59 06:59 06:59 Intake Total 2840 1700 Balance 2840 1700 Result Diagrams: 03/28/19 07:54 03/28/19 07:54 Additional Labs: Accuchecks 03/29/19 03/29/19 03/29/19 11:47 04:54 02:15 POC Glucose 288 H 110 124 H 03/28/19 03/28/19 19:48 16:26 POC Glucose 93 164 H ROS - Medication Medications: Active Medications Generic Name Dose Route Start Last Admin Trade Name Freq PRN Reason Stop Dose Admin Acetaminophen 650 mg 03/21/19 20:40 03/22/19 00:42 Tylenol PO 650 mg Q4H PRN Administration Headache/Fever/Mild Pain (1-3) Amlodipine Besylate 5 mg 03/28/19 09:00 03/29/19 09:00 Norvasc PO 5 mg DAILY KIAH Administration Enoxaparin Sodium 40 mg 03/22/19 09:00 03/29/19 08:59 Lovenox SC 40 mg 0900 KIAH Administration Glipizide 10 mg 03/22/19 07:30 03/29/19 09:00 Glucotrol PO 10 mg BID-AC KIAH Administration Hydralazine HCl 10 mg 03/21/19 20:51 03/28/19 00:10 Apresoline SLOW IVP 10 mg Q4H PRN Administration sbp>160 Sodium Chloride 1,000 mls @ 50 mls/hr 03/24/19 12:39 03/28/19 17:31 Normal Saline 0.9% IV 1,000 mls .Q20H KIAH Administration Ceftriaxone Sodium 2 gm/ 100 mls @ 200 mls/hr 03/28/19 12:00 03/28/19 13:59 Sodium Chloride IVPB 100 mls Q24HR KIA[facility] Administration Insulin Human Lispro 0 units 03/21/19 23:07 03/26/19 20:50 Humalog SC 2 units .BEDTIME SLIDING SC PRN Administration Bedtime Correctional Scale Insulin Human Lispro 0 units 03/23/19 11:41 03/29/19 12:35 Humalog SC 6 unit .MODERATE SLIDING SC PRN Administration Moderate Correctional Scale Lisinopril 2.5 mg 03/24/19 21:00 03/29/19 08:59 Zestril PO 2.5 mg BID KIAH Administration Metformin HCl 500 mg 03/28/19 08:00 03/29/19 08:59 Glucophage PO 500 mg QAM-WM KIAH Administration Saccharomyces Boulardii 250 mg 03/25/19 09:00 03/29/19 09:00 Florastor PO 250 mg DAILY KIAH Administration Sodium Chloride 10 ml 03/25/19 21:00 03/29/19 09:04 Flush - Normal Saline IVF Not Given Q12HR KIAH - Exam NAD Heart: RRR, no murmur, no gallops, no rubs Respiratory: CTAB, no wheezes, no rales, no ronchi Gastrointestinal: soft, non-tender, non-distended, normal bowel sounds Extremities: no cyanosis, no clubbing, no edema Skin - other findings: eschar on the anterior aspect of right 3rd toe, edema/ erythema/weeping Musculoskeletal: normal tone, normal strength Psychiatric - other findings: not oriented to situation Hosp A/P (1) Sepsis Code(s): A41.9 - SEPSIS, UNSPECIFIED ORGANISM Status: Resolved (2) Toe osteomyelitis, right Code(s): M86.9 - OSTEOMYELITIS, UNSPECIFIED Status: Acute (3) Diabetic foot infection Code(s): E11.628 - TYPE 2 DIABETES MELLITUS WITH OTHER SKIN COMPLICATIONS; L08.9 - LOCAL INFECTION OF THE SKIN AND SUBCUTANEOUS TISSUE, UNSP Status: Chronic (4) Diabetes type 2, uncontrolled Code(s): E11.65 - TYPE 2 DIABETES MELLITUS WITH HYPERGLYCEMIA Status: Chronic Qualifiers: Glycemic state: with hyperglycemia Qualified Code(s): E11.65 - Type 2 diabetes mellitus with hyperglycemia (5) Hypertension Code(s): I10 - ESSENTIAL (PRIMARY) HYPERTENSION Status: Chronic Qualifiers: Hypertension type: essential hypertension Qualified Code(s): I10 - Essential (primary) hypertension (6) Hernia Code(s): K46.9 - UNSPECIFIED ABDOMINAL HERNIA WITHOUT OBSTRUCTION OR GANGRENE Status: Chronic - Plan Appreciate Palliative care evaluation and working with family. Pt continues to demonstrate lack of capacity for decision making and lack of understanding of the severity of the infection or reason for surgery. She continues to say that creams or lotions topically along with God will heal her toe. Palliative care/ Sherin has spoken with all 3 children, Carla is the designated one to speak for them. All agree on surgery and phone number provided to Dr. Sanchez. DM - controlled. Some lower blood sugars - d/c NPH for now as I'm concerned for hypoglycemia especially if pt will go to surgery tomorrow. Appreciate ID consult -on ceftriaxone. HTN - improved control on lisinopril and amlodipine. d/c IVF - no indication to continue HLP - not on meds - anticipate pt will benefit from this - consider adding this prior to discharge. abd hernias - remain asx dvt prophy - lovenox gi prophy - not indicated code status full reviewed plan of care with Monie/daughter at bedside. Hospital macaroni maker system utilized for communication with patient. no questions or further needs at end of eval.
[2019-03-29] MEDS: Sodium Chloride 0.9% 1,000 ML IV SCH (15:50)
--- NOTE | 2019-03-29 17:26 | PDOC.GSPN ---
Surgery Progress Note: Subj - Subjective Narrative: Patient has been deemed not competent to make her own medical decisions in the family has designated her daughter Carla as her surrogate decision maker. The family would like to proceed with amputation of her right third toe. Heart is regular in its rate and rhythm and lungs are clear. Abdomen is soft and nondistended, she has multiple abdominal wall hernias which she will not let me attempt to reduce. The toe's appearance is stable compared to past descriptions and wound photos. She has strong pulses. Erythema extends onto the forefoot but no fluctuance. She is on the schedule for tomorrow. Surgery Progress Note: Obj - Vital signs Vital signs: Vital Signs - Most Recent Temp Pulse Resp BP Pulse Ox 98.7 F 71 18 133/67 96 03/29/19 07:14 03/29/19 09:00 03/29/19 07:14 03/29/19 07:14 03/29/19 08:00 Surgery Progress Note: Results - Labs Result Diagrams: 03/28/19 07:54 03/28/19 07:54 Lab results: Laboratory Results - last 24 hr 03/29/19 03/29/19 03/29/19 04:54 11:47 16:02 POC Glucose 110 288 H 111 H
[2019-03-30 06:03] LABS: #Basophils 0.1 thou/uL (0.0-0.2); #Eosinphils 0.4 thou/uL (0.0-0.7); #Lymphocytes 2.1 thou/uL (1.20-3.40); #Monocytes 0.7 thou/uL (0.11-0.59); %Basophils 0.8 % (0.0-1.0); %Eosinophils 5.3 % (0.0-10.0); %Lymphocytes 28.8 % (21.0-51.0); %Monocytes 9.5 % (0.0-10.0); %Neutrophils 55.6 % (42.0-75.0); Hemoglobin 11.7 g/dL (12.0-16.0); Mean Corpuscular HGB CONC 31.7 g/dL (32.0-36.0); Mean Corpuscular Hemoglobin 28.4 pg (27.0-31.0); Mean Corpuscular Volume 89.8 fL (78.0-98.0); Mean Platelet Volume 6.2 fL (7.4-10.4); Platelet Count 606 thou/uL (130-400); RBC Distribution Width 12.3 % (11.5-14.5); White Blood Cell (WBC) Count 7.2 thou/uL (4.8-10.8)
[2019-03-30 06:21] LABS: Anion Gap 10 mmol/L (10-20); BUN (Urea Nitrogen) 9 mg/dL (9.8-20.1); Calc. Creatinine Clearance 56 mL/min (70-130); Carbon Dioxide 25 mmol/L (23-31); Chloride 107 mmol/L (98-107); Estimated GFR-MDRD 69; Glucose 147 mg/dL (83-110); Potassium 4.1 mmol/L (3.5-5.1); Sodium 138 mmol/L (136-145)
[2019-03-30] MEDS: metFORMIN 500 MG TAB PO SCH (08:00)
[2019-03-30] MEDS: glipiZIDE 10 MG TAB PO SCH ×2 (08:00→16:06)
[2019-03-30] MEDS: Lisinopril 2.5 MG TAB PO SCH ×2 (09:15→21:47)
[2019-03-30] MEDS: Amlodipine 5 MG TAB PO SCH (09:15)
[2019-03-30] MEDS: Enoxaparin Sodium 40 MG/0.4 ML SYRINGE SC SCH (09:42)
[2019-03-30] MEDS ORDERED: Lidocaine 1% PF 5 ML VIAL ONE (10:23)
[2019-03-30] MEDS ORDERED: PHENYLEPHRINE-NS 100 MCG/ML 10 ML SYRINGE ONE (10:23)
[2019-03-30] MEDS ORDERED: PROPOFOL 200 MG/20 ML VIAL ONE (10:23)
[2019-03-30] MEDS ORDERED: Ondansetron PF 4 MG/2 ML Vial ONE (10:23)
[2019-03-30] MEDS: cefTRIAXone\\ROCEPHIN 2 GM in Sodium Chloride 0.9% 100 ML IVPB SCH (11:30)
[2019-03-30] MEDS ORDERED: Bacitracin Zinc Ointment 30 gm TUBE ONE (12:30)
[2019-03-30] MEDS ORDERED: Bupivacaine/Epinephrine 0.25% 30 ML VIAL ONE (12:30)
[2019-03-30] MEDS ORDERED: Fentanyl 100 MCG/2 ML VIAL ONE (12:42)
[2019-03-30] MEDS ORDERED: Promethazine HCl 25 MG/ML VIAL SLOW IVP PRN (14:08)
[2019-03-30] MEDS ORDERED: HYDROmorphone 2 MG/ML VIAL SLOW IVP PRN (14:08)
[2019-03-30] MEDS ORDERED: Promethazine HCl 25 MG/ML VIAL IM PRN (14:08)
[2019-03-30] MEDS ORDERED: Ondansetron HCl/PF 4 MG/2 ML Vial IVP PRN (14:08)
[2019-03-30] MEDS ORDERED: PACU-Morphine 4MG/ML VIAL SLOW IVP PRN (14:08)
[2019-03-30] MEDS ORDERED: traMADol HCl 50 MG TAB PO PRN (14:52)
--- NOTE | 2019-03-30 15:45 | PDOC.HOSPP ---
- Subjective Encounter Date: 03/30/19 Encounter Time: 10:00 Subjective: Patient seen and examined. No new complaints. No overnight events - Objective Vital Signs & Weight: Vital Signs (12 hours) Temp Pulse Resp BP BP BP Pulse Ox 03/30/19 10:20 98.6 F 96 18 174/75 H 97 03/30/19 09:52 96 03/30/19 09:15 73 167/60 H 03/30/19 07:38 98.4 F 73 20 167/60 H 96 Weight Admit Weight 131 lb 14.4 oz Weight 131 lb 14.4 oz I&O: 03/29/19 03/30/19 03/31/19 06:59 06:59 06:59 Intake Total 1700 850 Balance 1700 850 Result Diagrams: 03/30/19 05:40 03/30/19 05:40 Additional Labs: Accuchecks 03/30/19 03/30/19 03/29/19 04:51 02:12 19:53 POC Glucose 160 H 190 H 277 H 03/29/19 16:02 POC Glucose 111 H ROS - Review of Systems Eyes: denies: pain, vision change, conjunctivae inflammation, eyelid inflammation, redness, other ENT: denies: ear pain, ear discharge, nose pain, nose discharge, nose congestion , mouth pain, mouth swelling, throat pain, throat swelling, other Respiratory: denies: cough, dry, shortness of breath, hemoptysis, SOB with excertion, pleuritic pain, sputum, wheezing, other Cardiovascular: denies: chest pain, palpitations, orthopnea, paroxysmal noc. dyspnea, edema, light headedness, other Gastrointestinal: denies: nausea, vomitting, abdominal pain, diarrhea, constipation, melena, hematochezia, other Genitourinary: denies: dysuria, frequency, incontinence, hematuria, retention, other Musculoskeletal: denies: neck pain, shoulder pain, arm pain, back pain, hand pain, leg pain, foot pain, other - Medication Medications: Active Medications Generic Name Dose Route Start Last Admin Trade Name Freq PRN Reason Stop Dose Admin Acetaminophen 650 mg 03/21/19 20:40 03/22/19 00:42 Tylenol PO 650 mg Q4H PRN Administration Headache/Fever/Mild Pain (1-3) Amlodipine Besylate 5 mg 03/28/19 09:00 03/30/19 09:15 Norvasc PO 5 mg DAILY KIAH Administration Enoxaparin Sodium 40 mg 03/22/19 09:00 03/30/19 09:42 Lovenox SC Not Given 0900 [facility] Glipizide 10 mg 03/22/19 07:30 03/30/19 08:00 Glucotrol PO Not Given BID-AC [facility] Hydralazine HCl 10 mg 03/21/19 20:51 03/28/19 00:10 Apresoline SLOW IVP 10 mg Q4H PRN Administration sbp>160 Ceftriaxone Sodium 2 gm/ 100 mls @ 200 mls/hr 03/28/19 12:00 03/30/19 11:30 Sodium Chloride IVPB Not Given Q24HR [facility] Insulin Human Lispro 0 units 03/21/19 23:07 03/26/19 20:50 Humalog SC 2 units .BEDTIME SLIDING SC PRN Administration Bedtime Correctional Scale Insulin Human Lispro 0 units 03/23/19 11:41 03/29/19 12:35 Humalog SC 6 unit .MODERATE SLIDING SC PRN Administration Moderate Correctional Scale Lisinopril 2.5 mg 03/24/19 21:00 03/30/19 09:15 Zestril PO 2.5 mg BID [facility] Administration Metformin HCl 500 mg 03/28/19 08:00 03/30/19 08:00 Glucophage PO Not Given [facility] Saccharomyces Boulardii 250 mg 03/25/19 09:00 03/29/19 09:00 Florastor PO 250 mg DAILY KIAH Administration Sodium Chloride 10 ml 03/25/19 21:00 03/30/19 09:42 Flush - Normal Saline IVF 10 ml Q12HR K[facility] Administration - Exam NAD, awake alert Eye: PERRL, anicteric sclera ENT: normocephalic atraumatic, no oropharyngeal lesions Neck: supple, symmetric, no JVD Heart: RRR, no murmur, no gallops Respiratory: CTAB, no wheezes, no rales Gastrointestinal: soft, non-tender, non-distended Extremities: no cyanosis, no clubbing Skin: normal turgor, no lesions Neurological: CN's grossly intact, normal sensation to touch, no new deficit Musculoskeletal: normal tone, normal strength Psychiatric: normal affect, normal behavior Hosp A/P (1) ELIS (acute kidney injury) Code(s): N17.9 - ACUTE KIDNEY FAILURE, UNSPECIFIED Status: Resolved (2) Cellulitis of right lower extremity Code(s): L03.115 - CELLULITIS OF RIGHT LOWER LIMB Status: Acute (3) Diabetic foot infection Code(s): E11.628 - TYPE 2 DIABETES MELLITUS WITH OTHER SKIN COMPLICATIONS; L08.9 - LOCAL INFECTION OF THE SKIN AND SUBCUTANEOUS TISSUE, UNSP Status: Chronic (4) Hyponatremia Code(s): E87.1 - HYPO-OSMOLALITY AND HYPONATREMIA Status: Resolved (5) Sepsis Code(s): A41.9 - SEPSIS, UNSPECIFIED ORGANISM Status: Resolved (6) Diabetes type 2, uncontrolled Code(s): E11.65 - TYPE 2 DIABETES MELLITUS WITH HYPERGLYCEMIA Status: Chronic Qualifiers: Glycemic state: with hyperglycemia Qualified Code(s): E11.65 - Type 2 diabetes mellitus with hyperglycemia (7) Hypertension Code(s): I10 - ESSENTIAL (PRIMARY) HYPERTENSION Status: Chronic Qualifiers: Hypertension type: essential hypertension Qualified Code(s): I10 - Essential (primary) hypertension - Plan old records reviewed/req, continue antibiotics continue wound care toe amputation planned today continue rocephin medication reviewed as above symptomatic treatment
[2019-03-30] MEDS: Saccharomyces boulardii 250 MG CAP PO SCH (16:06)
[2019-03-30] MEDS: hydrALAZINE 20 MG/ML VIAL SLOW IVP PRN (16:06)
[2019-03-30] MEDS: HumaLOG 300 UNITS/3 ML VIAL SC PRN (18:17)
--- NOTE | 2019-03-30 18:35 | PDOC.OP ---
Operative Note - Operative Note Operative Note: PROCEDURE: Right third toe transmetatarsal amputation SURGEON: Yenny Sanchez M.D. 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 She was admitted due to worsening cellulitis of the foot and was found to have osteomyelitis of the proximal phalanx on MRI. She initially refused surgery but has been found to be disoriented to self place and situation, unable to understand her condition or treatment options and her daughter has been designated as her surrogate decision maker. The family has decided to proceed with amputation. PROCEDURE IN DETAIL: After informed consent was obtained from the patient's family, the patient was brought back to the operating room and placed in supine position and general anesthesia administered. She was prepped and draped in standard sterile fashion and a digital block performed. A paddle-shaped incision was made around the base of the third toe and dissection carried down to the metatarsophalangeal joint. The toe was resected at this level. The articular surface of the metatarsal head was resected with rongeurs. The bone had a normal appearance at this level. There was no abscess the tissues appeared healthy and viable. Wound was irrigated and hemostasis obtained using Bovie electrocautery. The wound was partially closed proximally with subcutaneous Vicryl sutures and vertical mattress Prolene sutures to the skin. A VAC dressing was placed and the patient was extubated and taken to recovery in good condition. Estimated blood loss was minimal. There were no complications. Specimen is right third toe.
[2019-03-30] MEDS: Acetaminophen 325 MG TAB PO PRN (21:47)
[2019-03-31] MEDS: traMADol HCl 50 MG TAB PO PRN ×3 (01:31→21:45)
[2019-03-31] MEDS: glipiZIDE 10 MG TAB PO SCH ×2 (08:14→17:11)
[2019-03-31] MEDS: metFORMIN 500 MG TAB PO SCH (08:14)
[2019-03-31] MEDS: Acetaminophen 325 MG TAB PO PRN (08:14)
[2019-03-31] MEDS: Amlodipine 5 MG TAB PO SCH (08:15)
[2019-03-31] MEDS: Saccharomyces boulardii 250 MG CAP PO SCH (08:16)
[2019-03-31] MEDS: Enoxaparin Sodium 40 MG/0.4 ML SYRINGE SC SCH (08:16)
[2019-03-31] MEDS: Lisinopril 2.5 MG TAB PO SCH ×2 (08:16→21:46)
[2019-03-31] MEDS ORDERED: traMADol HCl 50 MG TAB PO PRN (10:02)
[2019-03-31] MEDS: cefTRIAXone\\ROCEPHIN 2 GM in Sodium Chloride 0.9% 100 ML IVPB SCH (11:46)
[2019-03-31] MEDS: HumaLOG 300 UNITS/3 ML VIAL SC PRN ×2 (11:46→22:02)
--- NOTE | 2019-03-31 15:54 | PDOC.HOSPP ---
- Subjective Encounter Date: 03/31/19 Encounter Time: 15:50 Subjective: Ms. Elliott was seen today in follow-up of diabetic toe infection. She has had amputation of the affect toes, and has a wound vac in place. She notes a little soreness but overall, no complaints. - Objective Vital Signs & Weight: Vital Signs (12 hours) Temp Pulse Resp BP BP BP BP 03/31/19 11:12 98.8 F 74 18 149/66 H 03/31/19 08:20 03/31/19 08:16 107 H 133/71 03/31/19 08:15 107 H 133/71 03/31/19 07:33 98.5 F 112 H 16 133/71 03/31/19 05:05 98.5 F 72 16 135/63 Pulse Ox 03/31/19 11:12 93 L 03/31/19 08:20 96 03/31/19 08:16 03/31/19 08:15 03/31/19 07:33 96 03/31/19 05:05 95 Weight Admit Weight 131 lb 14.4 oz Weight 131 lb 14.4 oz I&O: 03/30/19 03/31/19 04/01/19 06:59 06:59 06:59 Intake Total 850 700 Output Total 0 Balance 850 700 Result Diagrams: 03/30/19 05:40 03/30/19 05:40 Additional Labs: Accuchecks 03/31/19 03/31/19 03/30/19 11:14 05:04 20:16 POC Glucose 274 H 118 H 144 H 03/30/19 03/30/19 16:45 12:46 POC Glucose 203 H 205 H ROS - Medication Medications: Active Medications Generic Name Dose Route Start Last Admin Trade Name Freq PRN Reason Stop Dose Admin Acetaminophen 650 mg 03/21/19 20:40 03/31/19 08:14 Tylenol PO 650 mg Q4H PRN Administration Headache/Fever/Mild Pain (1-3) Amlodipine Besylate 5 mg 03/28/19 09:00 03/31/19 08:15 Norvasc PO 5 mg DAILY [facility]IA[facility] Administration Enoxaparin Sodium 40 mg 03/22/19 09:00 03/31/19 08:16 Lovenox SC 40 mg 0900 [facility] Administration Glipizide 10 mg 03/22/19 07:30 03/31/19 08:14 Glucotrol PO 10 mg BID-AC [facility] Administration Hydralazine HCl 10 mg 03/21/19 20:51 03/30/19 16:06 Apresoline SLOW IVP 10 mg Q4H PRN Administration sbp>160 Ceftriaxone Sodium 2 gm/ 100 mls @ 200 mls/hr 03/28/19 12:00 03/31/19 11:46 Sodium Chloride IVPB 100 mls Q24HR [facility] Administration Insulin Human Lispro 0 units 03/21/19 23:07 03/26/19 20:50 Humalog SC 2 units .BEDTIME SLIDING SC PRN Administration Bedtime Correctional Scale Insulin Human Lispro 0 units 03/23/19 11:41 03/31/19 11:46 Humalog SC 6 unit .MODERATE SLIDING SC PRN Administration Moderate Correctional Scale Lisinopril 2.5 mg 03/24/19 21:00 03/31/19 08:16 Zestril PO 2.5 mg BID [facility] Administration Metformin HCl 500 mg 03/28/19 08:00 03/31/19 08:14 Glucophage PO 500 mg QAM-WM [facility] Administration Saccharomyces Boulardii 250 mg 03/25/19 09:00 03/31/19 08:16 Florastor PO 250 mg DAILY [facility] Administration Sodium Chloride 10 ml 03/25/19 21:00 03/31/19 08:17 Flush - Normal Saline IVF 10 ml Q12HR [facility] Administration Sodium Chloride 10 ml 03/25/19 14:09 03/31/19 11:51 Flush - Normal Saline IVF 10 ml PRN PRN Administration Saline Flush Tramadol HCl 50 mg 03/31/19 00:37 03/31/19 10:53 Ultram PO 50 mg Q4H PRN Administration Pain - Exam Eye: PERRL, anicteric sclera Heart: RRR, no murmur, no gallops, no rubs, normal peripheral pulses Respiratory: CTAB, no wheezes, no rales, no ronchi, normal chest expansion, no tachypnea Gastrointestinal: soft, non-tender, non-distended, normal bowel sounds, no palpable masses, no hepatomegaly, no splenomegaly Extremities: no cyanosis, no clubbing, no edema Skin: normal turgor (+ dry scaling skin on both feet) Hosp A/P (1) Toe osteomyelitis, right Code(s): M86.9 - OSTEOMYELITIS, UNSPECIFIED Status: Acute (2) Diabetes type 2, uncontrolled Code(s): E11.65 - TYPE 2 DIABETES MELLITUS WITH HYPERGLYCEMIA Status: Chronic Qualifiers: Glycemic state: with hyperglycemia Qualified Code(s): E11.65 - Type 2 diabetes mellitus with hyperglycemia (3) Hypertension Code(s): I10 - ESSENTIAL (PRIMARY) HYPERTENSION Status: Chronic Qualifiers: Hypertension type: essential hypertension Qualified Code(s): I10 - Essential (primary) hypertension (4) ELIS (acute kidney injury) Code(s): N17.9 - ACUTE KIDNEY FAILURE, UNSPECIFIED Status: Resolved - Plan * Osteomyelitis of the toes on the right foot due to Diabetes mellitus- continue local wound care, and IV Rocephin * DM - blood glucose is stable * HTN- blood pressure is stable * ELIS- resolved * Awaiting placement
--- NOTE | 2019-03-31 17:48 | PDOC.GSPN ---
Surgery Progress Note: Subj - Subjective Narrative: VAC is in place and patient is tolerating this well. Minimal drainage. From a surgical standpoint she can be discharged whenever home VAC is arranged. I can see her back in my clinic or in the outpatient wound care clinic. If there are any issues over the weekend the on-call surgeon can be called; otherwise I will see the patient on Wednesday if she is still admitted at that time. Surgery Progress Note: Obj - Vital signs Vital signs: Vital Signs - Most Recent Temp Pulse Resp BP Pulse Ox 98.7 F 76 18 135/62 93 L 03/31/19 16:34 03/31/19 16:34 03/31/19 16:34 03/31/19 16:34 03/31/19 16:34 Surgery Progress Note: Results - Labs Result Diagrams: 03/30/19 05:40 03/30/19 05:40 Lab results: Laboratory Results - last 24 hr 03/30/19 03/31/19 03/31/19 12:46 05:04 11:14 POC Glucose 205 H 118 H 274 H 03/31/19 16:36 POC Glucose 134 H
[2019-04-01 07:40] LABS: #Basophils 0.1 thou/uL (0.0-0.2); #Eosinphils 0.3 thou/uL (0.0-0.7); #Lymphocytes 1.9 thou/uL (1.20-3.40); #Monocytes 0.6 thou/uL (0.11-0.59); #Neutrophils 3.5 thou/uL (1.40-6.50); %Eosinophils 4.6 % (0.0-10.0); %Lymphocytes 30.2 % (21.0-51.0); %Monocytes 9.1 % (0.0-10.0); %Neutrophils 55.1 % (42.0-75.0); Hemoglobin 11.6 g/dL (12.0-16.0); Mean Corpuscular HGB CONC 33.1 g/dL (32.0-36.0); Mean Corpuscular Hemoglobin 29.8 pg (27.0-31.0); Mean Corpuscular Volume 90.1 fL (78.0-98.0); Mean Platelet Volume 5.9 fL (7.4-10.4); Platelet Count 563 thou/uL (130-400); RBC Distribution Width 12.3 % (11.5-14.5); Red Blood Cell (RBC) Count 3.88 mill/uL (4.20-5.40); White Blood Cell (WBC) Count 6.3 thou/uL (4.8-10.8)
[2019-04-01 07:58] LABS: Anion Gap 12 mmol/L (10-20); BUN (Urea Nitrogen) 9 mg/dL (9.8-20.1); Calc. Creatinine Clearance 55 mL/min (70-130); Calcium 8.8 mg/dL (7.8-10.44); Carbon Dioxide 24 mmol/L (23-31); Chloride 106 mmol/L (98-107); Estimated GFR-MDRD 68; Glucose 110 mg/dL (83-110); Potassium 4.1 mmol/L (3.5-5.1); Sodium 138 mmol/L (136-145)
[2019-04-01] MEDS: Lisinopril 2.5 MG TAB PO SCH ×2 (08:06→20:26)
[2019-04-01] MEDS: glipiZIDE 10 MG TAB PO SCH ×2 (08:06→16:47)
[2019-04-01] MEDS: Saccharomyces boulardii 250 MG CAP PO SCH (08:07)
[2019-04-01] MEDS: metFORMIN 500 MG TAB PO SCH (08:07)
[2019-04-01] MEDS: Amlodipine 5 MG TAB PO SCH (08:07)
[2019-04-01] MEDS: Enoxaparin Sodium 40 MG/0.4 ML SYRINGE SC SCH (08:07)
[2019-04-01] MEDS: traMADol HCl 50 MG TAB PO PRN ×2 (10:47→20:28)
[2019-04-01] MEDS: cefTRIAXone\\ROCEPHIN 2 GM in Sodium Chloride 0.9% 100 ML IVPB SCH (11:38)
[2019-04-01] MEDS: HumaLOG 300 UNITS/3 ML VIAL SC PRN ×2 (11:44→20:27)
--- NOTE | 2019-04-01 11:51 | EKG ---
Test Reason : Blood Pressure : / mmHG Vent. Rate : 099 BPM Atrial Rate : 099 BPM P-R Int : 136 ms QRS Dur : 118 ms QT Int : 378 ms P-R-T Axes : 027 -10 -03 degrees QTc Int : 485 ms Normal sinus rhythm Left ventricular hypertrophy with QRS widening Prolonged QT Abnormal ECG No changes from 23-JAN-2019 Confirmed by SUNG SALEEM DO ([id number]), map editor JOSUÉ HILTON ([id number]) on 04/01/2019 11:50:42 AM Referred By: Confirmed By:SUNG SALEEM DO
[2019-04-01] MEDS ORDERED: Prevnar 13-Val Conj/PF 0.5 ML SYRINGE IM ONE (13:00)
--- NOTE | 2019-04-01 17:23 | PDOC.HOSPP ---
- Subjective Encounter Date: 04/01/19 Encounter Time: 17:21 Subjective: Ms. Elliott was seen today in follow-up of diabetic foot infection. She does not have any new complaints. She noted some light pain, but this has resolved. - Objective Vital Signs & Weight: Vital Signs (12 hours) Temp Pulse Resp BP BP Pulse Ox 04/01/19 08:07 70 148/66 H 04/01/19 08:06 70 148/66 H 04/01/19 07:35 98.3 F 70 18 148/66 H 92 L Weight Admit Weight 131 lb 14.4 oz Weight 131 lb 14.4 oz I&O: 03/31/19 04/01/19 04/02/19 06:59 06:59 06:59 Intake Total 700 960 600 Output Total 0 Balance 700 960 600 Result Diagrams: 04/01/19 07:33 04/01/19 07:33 Additional Labs: Accuchecks 04/01/19 04/01/19 04/01/19 16:16 11:27 04:33 POC Glucose 110 273 H 92 03/31/19 20:41 POC Glucose 208 H ROS - Medication Medications: Active Medications Generic Name Dose Route Start Last Admin Trade Name Freq PRN Reason Stop Dose Admin Acetaminophen 650 mg 03/21/19 20:40 03/31/19 08:14 Tylenol PO 650 mg Q4H PRN Administration Headache/Fever/Mild Pain (1-3) Amlodipine Besylate 5 mg 03/28/19 09:00 04/01/19 08:07 Norvasc PO 5 mg DAILY KIAH Administration Enoxaparin Sodium 40 mg 03/22/19 09:00 04/01/19 08:07 Lovenox SC 40 mg 0900 KIAH Administration Glipizide 10 mg 03/22/19 07:30 04/01/19 16:47 Glucotrol PO 10 mg BID-AC KIAH Administration Hydralazine HCl 10 mg 03/21/19 20:51 03/30/19 16:06 Apresoline SLOW IVP 10 mg Q4H PRN Administration sbp>160 Ceftriaxone Sodium 2 gm/ 100 mls @ 200 mls/hr 03/28/19 12:00 04/01/19 11:38 Sodium Chloride IVPB 100 mls Q24HR KIAH Administration Insulin Human Lispro 0 units 03/21/19 23:07 03/31/19 22:02 Humalog SC 2 units .BEDTIME SLIDING SC PRN Administration Bedtime Correctional Scale Insulin Human Lispro 0 units 03/23/19 11:41 04/01/19 11:44 Humalog SC 6 unit .MODERATE SLIDING SC PRN Administration Moderate Correctional Scale Lisinopril 2.5 mg 03/24/19 21:00 04/01/19 08:06 Zestril PO 2.5 mg BID KIAH Administration Metformin HCl 500 mg 03/28/19 08:00 04/01/19 08:07 Glucophage PO 500 mg QAM-WM KIAH Administration Saccharomyces Boulardii 250 mg 03/25/19 09:00 04/01/19 08:07 Florastor PO 250 mg DAILY KIAH Administration Sodium Chloride 10 ml 03/25/19 21:00 04/01/19 08:08 Flush - Normal Saline IVF 10 ml Q12HR KIAH Administration Sodium Chloride 10 ml 03/25/19 14:09 03/31/19 11:51 Flush - Normal Saline IVF 10 ml PRN PRN Administration Saline Flush Tramadol HCl 50 mg 03/31/19 21:34 03/31/19 21:45 Ultram PO 50 mg Q4H PRN Administration Moderate Pain (4-6) Tramadol HCl 100 mg 03/31/19 21:37 04/01/19 10:47 Ultram PO 100 mg Q4H PRN Administration Severe Pain (7-10) - Exam Eye: PERRL, anicteric sclera Heart: RRR, no murmur, no gallops, no rubs, normal peripheral pulses Respiratory: CTAB, no wheezes, no rales, no ronchi, normal chest expansion, no tachypnea, normal percussion Gastrointestinal: soft, non-tender, non-distended, normal bowel sounds, no palpable masses, no hepatomegaly, no splenomegaly Extremities: no cyanosis, no clubbing, no edema (+ hammer toe deformity o both feet) Hosp A/P (1) Toe osteomyelitis, right Code(s): M86.9 - OSTEOMYELITIS, UNSPECIFIED Status: Acute (2) Diabetes type 2, uncontrolled Code(s): E11.65 - TYPE 2 DIABETES MELLITUS WITH HYPERGLYCEMIA Status: Chronic Qualifiers: Glycemic state: with hyperglycemia Qualified Code(s): E11.65 - Type 2 diabetes mellitus with hyperglycemia (3) Hypertension Code(s): I10 - ESSENTIAL (PRIMARY) HYPERTENSION Status: Chronic Qualifiers: Hypertension type: essential hypertension Qualified Code(s): I10 - Essential (primary) hypertension (4) ELIS (acute kidney injury) Code(s): N17.9 - ACUTE KIDNEY FAILURE, UNSPECIFIED Status: Resolved - Plan * Osteomyelitis of the toes on the right foot due to Diabetes mellitus- can change to oral Augmentin in the AM, based on cultures ( growing Strep and Staph) * DM - blood glucose is stable * HTN- blood pressure is stable * ELIS- resolved * Awaiting placement
[2019-04-01] MEDS: Amoxicillin/Potassium Clav 875 MG TAB PO SCH (20:27)
[2019-04-02] MEDS: HumaLOG 300 UNITS/3 ML VIAL SC PRN ×3 (06:09→16:54)
[2019-04-02] MEDS: metFORMIN 500 MG TAB PO SCH (08:06)
[2019-04-02] MEDS: Amoxicillin/Potassium Clav 875 MG TAB PO SCH ×2 (08:06→20:16)
[2019-04-02] MEDS: Lisinopril 2.5 MG TAB PO SCH ×2 (08:06→20:16)
[2019-04-02] MEDS: Saccharomyces boulardii 250 MG CAP PO SCH (08:06)
[2019-04-02] MEDS: Amlodipine 5 MG TAB PO SCH (08:06)
[2019-04-02] MEDS: glipiZIDE 10 MG TAB PO SCH ×2 (08:06→16:54)
[2019-04-02] MEDS: Enoxaparin Sodium 40 MG/0.4 ML SYRINGE SC SCH (08:07)
--- NOTE | 2019-04-02 12:19 | PDOC.HOSPP ---
- Subjective Encounter Date: 04/02/19 Encounter Time: 12:00 Subjective: Ms. Elliott was seen today in follow-up of osteomyelitis of the 3rd toe on the right foot. She does not have any complaints today. She denies any significant pain in her foot. - Objective Vital Signs & Weight: Vital Signs (12 hours) Temp Pulse Resp BP BP Pulse Ox 04/02/19 08:06 70 152/51 H 04/02/19 08:00 97.6 F 68 18 145/75 H 94 L Weight Admit Weight 131 lb 14.4 oz Weight 131 lb 14.4 oz I&O: 04/01/19 04/02/19 04/03/19 06:59 06:59 06:59 Intake Total 960 2680 240 Balance 960 2680 240 Result Diagrams: 04/01/19 07:33 04/01/19 07:33 Additional Labs: Accuchecks 04/02/19 04/02/19 04/01/19 11:49 05:03 20:11 POC Glucose 214 H 188 H 244 H 04/01/19 16:16 POC Glucose 110 ROS - Medication Medications: Active Medications Generic Name Dose Route Start Last Admin Trade Name Freq PRN Reason Stop Dose Admin Acetaminophen 650 mg 03/21/19 20:40 03/31/19 08:14 Tylenol PO 650 mg Q4H PRN Administration Headache/Fever/Mild Pain (1-3) Amlodipine Besylate 5 mg 03/28/19 09:00 04/02/19 08:06 Norvasc PO 5 mg DAILY KIAH Administration Amoxicillin/Clavulanate Potassium 875 mg 04/01/19 21:00 04/02/19 08:06 Augmentin PO 875 mg Q12HR KIAH Administration Enoxaparin Sodium 40 mg 03/22/19 09:00 04/02/19 08:07 Lovenox SC 40 mg 0900 KIAH Administration Glipizide 10 mg 03/22/19 07:30 04/02/19 08:06 Glucotrol PO 10 mg BID-AC KIAH Administration Hydralazine HCl 10 mg 03/21/19 20:51 03/30/19 16:06 Apresoline SLOW IVP 10 mg Q4H PRN Administration sbp>160 Insulin Human Lispro 0 units 03/21/19 23:07 04/01/19 20:27 Humalog SC 2 units .BEDTIME SLIDING SC PRN Administration Bedtime Correctional Scale Insulin Human Lispro 0 units 03/23/19 11:41 04/02/19 12:02 Humalog SC 4 unit .MODERATE SLIDING SC PRN Administration Moderate Correctional Scale Lisinopril 2.5 mg 03/24/19 21:00 04/02/19 08:06 Zestril PO 2.5 mg BID KIAH Administration Metformin HCl 500 mg 03/28/19 08:00 04/02/19 08:06 Glucophage PO 500 mg QAM-WM KIAH Administration Saccharomyces Boulardii 250 mg 03/25/19 09:00 04/02/19 08:06 Florastor PO 250 mg DAILY KIAH Administration Sodium Chloride 10 ml 03/25/19 21:00 04/02/19 08:07 Flush - Normal Saline IVF 10 ml Q12HR KIAH Administration Sodium Chloride 10 ml 03/25/19 14:09 03/31/19 11:51 Flush - Normal Saline IVF 10 ml PRN PRN Administration Saline Flush Tramadol HCl 50 mg 03/31/19 21:34 04/01/19 20:28 Ultram PO 50 mg Q4H PRN Administration Moderate Pain (4-6) Tramadol HCl 100 mg 03/31/19 21:37 04/01/19 10:47 Ultram PO 100 mg Q4H PRN Administration Severe Pain (7-10) - Exam Eye: PERRL, anicteric sclera Heart: RRR, no murmur, no gallops, no rubs, normal peripheral pulses Respiratory: CTAB, no wheezes, no rales, no ronchi, normal chest expansion, no tachypnea, normal percussion Gastrointestinal: soft, non-tender, non-distended, normal bowel sounds, no palpable masses, no hepatomegaly, no splenomegaly Extremities: no cyanosis, no clubbing, no edema (+ hammer toes deformity in both feet, and wound vac is in place) Hosp A/P (1) Toe osteomyelitis, right Code(s): M86.9 - OSTEOMYELITIS, UNSPECIFIED Status: Acute (2) Diabetes type 2, uncontrolled Code(s): E11.65 - TYPE 2 DIABETES MELLITUS WITH HYPERGLYCEMIA Status: Chronic Qualifiers: Glycemic state: with hyperglycemia Qualified Code(s): E11.65 - Type 2 diabetes mellitus with hyperglycemia (3) Hypertension Code(s): I10 - ESSENTIAL (PRIMARY) HYPERTENSION Status: Chronic Qualifiers: Hypertension type: essential hypertension Qualified Code(s): I10 - Essential (primary) hypertension (4) ELIS (acute kidney injury) Code(s): N17.9 - ACUTE KIDNEY FAILURE, UNSPECIFIED Status: Resolved - Plan * Osteomyelitis of the toes on the right foot due to Diabetes mellitus- will continue Augmentin * DM - blood glucose is stable * HTN- blood pressure is stable * ELIS- resolved * Awaiting shelter placement
[2019-04-02] MEDS: traMADol HCl 50 MG TAB PO PRN (20:20)
[2019-04-03] MEDS: Amoxicillin/Potassium Clav 875 MG TAB PO SCH ×2 (08:08→20:13)
[2019-04-03] MEDS: Amlodipine 5 MG TAB PO SCH (08:08)
[2019-04-03] MEDS: Saccharomyces boulardii 250 MG CAP PO SCH (08:09)
[2019-04-03] MEDS: glipiZIDE 10 MG TAB PO SCH ×2 (08:09→16:50)
[2019-04-03] MEDS: metFORMIN 500 MG TAB PO SCH (08:09)
[2019-04-03] MEDS: Lisinopril 2.5 MG TAB PO SCH ×2 (08:09→20:13)
[2019-04-03] MEDS: Enoxaparin Sodium 40 MG/0.4 ML SYRINGE SC SCH (08:10)
[2019-04-03] MEDS: HumaLOG 300 UNITS/3 ML VIAL SC PRN (12:08)
--- NOTE | 2019-04-03 16:03 | PDOC.GSPN ---
Surgery Progress Note: Subj - Subjective Narrative: Patient is doing fine. She denies much pain in her foot, states that there is only a little bit at the toe and that the medicines help. Her VAC is in position and I will see her with wound care tomorrow when this is changed. Surgery Progress Note: Obj - Vital signs Vital signs: Vital Signs - Most Recent Temp Pulse Resp BP Pulse Ox 98 F 100 20 117/67 97 04/03/19 08:05 04/03/19 08:09 04/03/19 08:05 04/03/19 08:09 04/03/19 08:05 Surgery Progress Note: Results - Labs Result Diagrams: 04/01/19 07:33 04/01/19 07:33 Lab results: Laboratory Results - last 24 hr 04/03/19 04/03/19 04:13 11:33 POC Glucose 114 H 263 H
--- NOTE | 2019-04-03 17:31 | PDOC.HOSPP ---
- Subjective Encounter Date: 04/03/19 Encounter Time: 12:00 Subjective: Ms. Elliott was seen today in follow-up of diabetic toe infection. She does not have any complaints - Objective Vital Signs & Weight: Vital Signs (12 hours) Temp Pulse Resp BP BP Pulse Ox 04/03/19 16:50 98.3 F 70 20 153/64 H 94 L 04/03/19 08:09 100 117/67 04/03/19 08:08 100 117/67 04/03/19 08:05 98 F 100 20 117/67 97 Weight Admit Weight 131 lb 14.4 oz Weight 131 lb 14.4 oz I&O: 04/02/19 04/03/19 04/04/19 06:59 06:59 06:59 Intake Total 2680 2110 Output Total 1000 Balance 2680 1110 Result Diagrams: 04/01/19 07:33 04/01/19 07:33 Additional Labs: Accuchecks 04/03/19 04/03/19 04/03/19 16:47 11:33 04:13 POC Glucose 120 H 263 H 114 H 04/02/19 20:25 POC Glucose 188 H ROS - Medication Medications: Active Medications Generic Name Dose Route Start Last Admin Trade Name Freq PRN Reason Stop Dose Admin Acetaminophen 650 mg 03/21/19 20:40 03/31/19 08:14 Tylenol PO 650 mg Q4H PRN Administration Headache/Fever/Mild Pain (1-3) Amlodipine Besylate 5 mg 03/28/19 09:00 04/03/19 08:08 Norvasc PO Not Given DAILY KIHA Amoxicillin/Clavulanate Potassium 875 mg 04/01/19 21:00 04/03/19 08:08 Augmentin PO 875 mg Q12HR KIAH Administration Enoxaparin Sodium 40 mg 03/22/19 09:00 04/03/19 08:10 Lovenox SC 40 mg 0900 KIAH Administration Glipizide 10 mg 03/22/19 07:30 04/03/19 16:50 Glucotrol PO 10 mg BID-AC KIAH Administration Hydralazine HCl 10 mg 03/21/19 20:51 03/30/19 16:06 Apresoline SLOW IVP 10 mg Q4H PRN Administration sbp>160 Insulin Human Lispro 0 units 03/21/19 23:07 04/01/19 20:27 Humalog SC 2 units .BEDTIME SLIDING SC PRN Administration Bedtime Correctional Scale Insulin Human Lispro 0 units 03/23/19 11:41 04/03/19 12:08 Humalog SC 6 unit .MODERATE SLIDING SC PRN Administration Moderate Correctional Scale Lisinopril 2.5 mg 03/24/19 21:00 04/03/19 08:09 Zestril PO Not Given BID KIAH Metformin HCl 500 mg 03/28/19 08:00 04/03/19 08:09 Glucophage PO 500 mg QAM-WM KIAH Administration Saccharomyces Boulardii 250 mg 03/25/19 09:00 04/03/19 08:09 Florastor PO 250 mg DAILY KIAH Administration Sodium Chloride 10 ml 03/25/19 21:00 04/03/19 08:11 Flush - Normal Saline IVF 10 ml Q12HR KIAH Administration Sodium Chloride 10 ml 03/25/19 14:09 03/31/19 11:51 Flush - Normal Saline IVF 10 ml PRN PRN Administration Saline Flush Tramadol HCl 50 mg 03/31/19 21:34 04/01/19 20:28 Ultram PO 50 mg Q4H PRN Administration Moderate Pain (4-6) Tramadol HCl 100 mg 03/31/19 21:37 04/02/19 20:20 Ultram PO 100 mg Q4H PRN Administration Severe Pain (7-10) - Exam Eye: PERRL, anicteric sclera Heart: RRR, no murmur, no gallops, no rubs, normal peripheral pulses Respiratory: CTAB, no wheezes, no rales, no ronchi, normal chest expansion, no tachypnea Gastrointestinal: soft, non-tender, non-distended, normal bowel sounds, no palpable masses, no hepatomegaly, no splenomegaly Extremities: no cyanosis, no clubbing, no edema (Good distal pulses bilaterally - wound vac is in place) Hosp A/P (1) Toe osteomyelitis, right Code(s): M86.9 - OSTEOMYELITIS, UNSPECIFIED Status: Acute (2) Diabetes type 2, uncontrolled Code(s): E11.65 - TYPE 2 DIABETES MELLITUS WITH HYPERGLYCEMIA Status: Chronic Qualifiers: Glycemic state: with hyperglycemia Qualified Code(s): E11.65 - Type 2 diabetes mellitus with hyperglycemia (3) Hypertension Code(s): I10 - ESSENTIAL (PRIMARY) HYPERTENSION Status: Chronic Qualifiers: Hypertension type: essential hypertension Qualified Code(s): I10 - Essential (primary) hypertension (4) ELIS (acute kidney injury) Code(s): N17.9 - ACUTE KIDNEY FAILURE, UNSPECIFIED Status: Resolved - Plan * Osteomyelitis of the toes on the right foot due to Diabetes mellitus- will continue Augmentin * Continue local wound care and Surgical recommendations * DM - blood glucose is stable * HTN- blood pressure is stable * ELIS- resolved * Awaiting [facility] placement
[2019-04-03] MEDS: traMADol HCl 50 MG TAB PO PRN (20:14)
[2019-04-04 08:46] LABS: #Basophils 0.1 thou/uL (0.0-0.2); #Eosinphils 0.3 thou/uL (0.0-0.7); #Lymphocytes 2.2 thou/uL (1.20-3.40); #Monocytes 0.5 thou/uL (0.11-0.59); #Neutrophils 3.1 thou/uL (1.40-6.50); %Basophils 0.9 % (0.0-1.0); %Eosinophils 5.5 % (0.0-10.0); %Monocytes 8.7 % (0.0-10.0); %Neutrophils 49.9 % (42.0-75.0); Hemoglobin 12.6 g/dL (12.0-16.0); Mean Corpuscular HGB CONC 32.8 g/dL (32.0-36.0); Mean Corpuscular Volume 88.4 fL (78.0-98.0); Mean Platelet Volume 6.6 fL (7.4-10.4); Platelet Count 626 thou/uL (130-400); RBC Distribution Width 12.5 % (11.5-14.5); Red Blood Cell (RBC) Count 4.36 mill/uL (4.20-5.40); White Blood Cell (WBC) Count 6.2 thou/uL (4.8-10.8)
[2019-04-04] MEDS: Saccharomyces boulardii 250 MG CAP PO SCH (09:01)
[2019-04-04] MEDS: metFORMIN 500 MG TAB PO SCH (09:01)
[2019-04-04] MEDS: Lisinopril 2.5 MG TAB PO SCH ×2 (09:01→20:09)
[2019-04-04] MEDS: glipiZIDE 10 MG TAB PO SCH ×2 (09:01→18:14)
[2019-04-04] MEDS: Amoxicillin/Potassium Clav 875 MG TAB PO SCH ×2 (09:01→20:09)
[2019-04-04] MEDS: Amlodipine 5 MG TAB PO SCH (09:02)
[2019-04-04] MEDS: Enoxaparin Sodium 40 MG/0.4 ML SYRINGE SC SCH (09:02)
[2019-04-04 09:12] LABS: Anion Gap 15 mmol/L (10-20); BUN (Urea Nitrogen) 16 mg/dL (9.8-20.1); Calc. Creatinine Clearance 50 mL/min (70-130); Calcium 9.6 mg/dL (7.8-10.44); Carbon Dioxide 23 mmol/L (23-31); Chloride 102 mmol/L (98-107); Estimated GFR-MDRD 60; Glucose 169 mg/dL (83-110); Potassium 4.5 mmol/L (3.5-5.1); Sodium 135 mmol/L (136-145)
[2019-04-04] MEDS: HumaLOG 300 UNITS/3 ML VIAL SC PRN (12:09)
--- NOTE | 2019-04-04 16:15 | PDOC.GSPN ---
Surgery Progress Note: Subj - Subjective Narrative: Patient is feeling well. She is only having a little pain in her foot. The wound looks good and is filling in nicely. It is only about a centimeter deep. Assessment/plan: Doing well status post toe amputation. She tolerates the VAC well and I would like to continue this to get the wound healed as quickly as possible. I'm worried about her compliance with other types of wound care. From a surgical standpoint she is ready for discharge at any time. I'll see her back in my clinic in a few weeks after discharge. Surgery Progress Note: Obj - Vital signs Vital signs: Vital Signs - Most Recent Temp Pulse Resp BP Pulse Ox 98.0 F 63 18 146/68 H 95 04/04/19 13:16 04/04/19 13:16 04/04/19 13:16 04/04/19 13:16 04/04/19 13:16 Surgery Progress Note: Results - Labs Result Diagrams: 04/04/19 08:09 04/04/19 08:09 Lab results: Laboratory Results - last 24 hr 04/04/19 04/04/19 04/04/19 04:41 08:09 08:09 WBC 6.2 RBC 4.36 Hgb 12.6 Hct 38.5 MCV 88.4 MCH 29.0 MCHC 32.8 RDW 12.5 Plt Count 626 H MPV 6.6 L Neutrophils % 49.9 Lymphocytes % 35.0 Monocytes % 8.7 Eosinophils % 5.5 Basophils % 0.9 Neutrophils # 3.1 Lymphocytes # 2.2 Monocytes # 0.5 Eosinophils # 0.3 Basophils # 0.1 Sodium 135 L Potassium 4.5 Chloride 102 Carbon Dioxide 23 Anion Gap 15 BUN 16 Creatinine 0.91 Estimated GFR (MDRD) 60 Glucose 169 H POC Glucose 190 H Calcium 9.6 04/04/19 11:17 WBC RBC Hgb Hct MCV MCH MCHC RDW Plt Count MPV Neutrophils % Lymphocytes % Monocytes % Eosinophils % Basophils % Neutrophils # Lymphocytes # Monocytes # Eosinophils # Basophils # Sodium Potassium Chloride Carbon Dioxide Anion Gap BUN Creatinine Estimated GFR (MDRD) Glucose POC Glucose 244 H Calcium
--- NOTE | 2019-04-04 18:19 | PDOC.HOSPP ---
- Subjective Encounter Date: 04/04/19 Encounter Time: 12:45 Subjective: Ms. Elliott was seen today in follow-up of diabetic toe infection. She does not ahve any complaints today. - Objective Vital Signs & Weight: Vital Signs (12 hours) Temp Pulse Resp BP BP Pulse Ox 04/04/19 13:16 98.0 F 63 18 146/68 H 95 04/04/19 09:02 83 127/67 04/04/19 09:01 83 127/67 04/04/19 08:00 94 L 04/04/19 07:46 97.9 F 83 16 127/67 94 L Weight Admit Weight 131 lb 14.4 oz Weight 131 lb 14.4 oz I&O: 04/03/19 04/04/19 04/05/19 06:59 06:59 06:59 Intake Total 2110 1000 Output Total 1000 Balance 1110 1000 Result Diagrams: 04/04/19 08:09 04/04/19 08:09 Additional Labs: Accuchecks 04/04/19 04/04/19 04/04/19 17:18 11:17 04:41 POC Glucose 151 H 244 H 190 H 04/03/19 19:27 POC Glucose 212 H ROS - Medication Medications: Active Medications Generic Name Dose Route Start Last Admin Trade Name Freq PRN Reason Stop Dose Admin Acetaminophen 650 mg 03/21/19 20:40 03/31/19 08:14 Tylenol PO 650 mg Q4H PRN Administration Headache/Fever/Mild Pain (1-3) Amlodipine Besylate 5 mg 03/28/19 09:00 04/04/19 09:02 Norvasc PO 5 mg DAILY KIAH Administration Amoxicillin/Clavulanate Potassium 875 mg 04/01/19 21:00 04/04/19 09:01 Augmentin PO 875 mg Q12HR KIAH Administration Enoxaparin Sodium 40 mg 03/22/19 09:00 04/04/19 09:02 Lovenox SC 40 mg 0900 KIAH Administration Glipizide 10 mg 03/22/19 07:30 04/04/19 18:14 Glucotrol PO 10 mg BID-AC KIAH Administration Hydralazine HCl 10 mg 03/21/19 20:51 03/30/19 16:06 Apresoline SLOW IVP 10 mg Q4H PRN Administration sbp>160 Insulin Human Lispro 0 units 03/21/19 23:07 04/01/19 20:27 Humalog SC 2 units .BEDTIME SLIDING SC PRN Administration Bedtime Correctional Scale Insulin Human Lispro 0 units 03/23/19 11:41 04/04/19 12:09 Humalog SC 4 unit .MODERATE SLIDING SC PRN Administration Moderate Correctional Scale Lisinopril 2.5 mg 03/24/19 21:00 04/04/19 09:01 Zestril PO 2.5 mg BID KIAH Administration Metformin HCl 500 mg 03/28/19 08:00 04/04/19 09:01 Glucophage PO 500 mg QAM-WM KIAH Administration Saccharomyces Boulardii 250 mg 03/25/19 09:00 04/04/19 09:01 Florastor PO 250 mg DAILY KIAH Administration Sodium Chloride 10 ml 03/25/19 21:00 04/04/19 09:02 Flush - Normal Saline IVF 10 ml Q12HR KIAH Administration Sodium Chloride 10 ml 03/25/19 14:09 03/31/19 11:51 Flush - Normal Saline IVF 10 ml PRN PRN Administration Saline Flush Tramadol HCl 50 mg 03/31/19 21:34 04/01/19 20:28 Ultram PO 50 mg Q4H PRN Administration Moderate Pain (4-6) Tramadol HCl 100 mg 03/31/19 21:37 04/03/19 20:14 Ultram PO 100 mg Q4H PRN Administration Severe Pain (7-10) - Exam Eye: PERRL, anicteric sclera Heart: RRR, no murmur, no gallops, no rubs, normal peripheral pulses Respiratory: CTAB, no wheezes, no rales, no ronchi, normal chest expansion Gastrointestinal: soft, non-tender, non-distended, normal bowel sounds, no palpable masses Extremities: no cyanosis, no clubbing, no edema (wound vac is in place) Hosp A/P (1) Toe osteomyelitis, right Code(s): M86.9 - OSTEOMYELITIS, UNSPECIFIED Status: Acute (2) Diabetes type 2, uncontrolled Code(s): E11.65 - TYPE 2 DIABETES MELLITUS WITH HYPERGLYCEMIA Status: Chronic Qualifiers: Glycemic state: with hyperglycemia Qualified Code(s): E11.65 - Type 2 diabetes mellitus with hyperglycemia (3) Hypertension Code(s): I10 - ESSENTIAL (PRIMARY) HYPERTENSION Status: Chronic Qualifiers: Hypertension type: essential hypertension Qualified Code(s): I10 - Essential (primary) hypertension (4) ELIS (acute kidney injury) Code(s): N17.9 - ACUTE KIDNEY FAILURE, UNSPECIFIED Status: Resolved - Plan * Osteomyelitis of the toes on the right foot due to Diabetes mellitus- will continue Augmentin * Continue local wound care * DM - blood glucose is stable * HTN- blood pressure is stable * Awaiting snf placement
[2019-04-04] MEDS: Acetaminophen 325 MG TAB PO PRN (20:09)
[2019-04-05] MEDS: metFORMIN 500 MG TAB PO SCH (07:59)
[2019-04-05] MEDS: Saccharomyces boulardii 250 MG CAP PO SCH (07:59)
[2019-04-05] MEDS: Lisinopril 2.5 MG TAB PO SCH (07:59)
[2019-04-05] MEDS: glipiZIDE 10 MG TAB PO SCH (07:59)
[2019-04-05] MEDS: Amlodipine 5 MG TAB PO SCH (07:59)
[2019-04-05] MEDS: Amoxicillin/Potassium Clav 875 MG TAB PO SCH (07:59)
[2019-04-05] MEDS: Enoxaparin Sodium 40 MG/0.4 ML SYRINGE SC SCH (08:00)
--- NOTE | 2019-04-05 09:31 | PDOC.GSPN ---
Surgery Progress Note: Subj - Subjective Narrative: VAC is in place. Patient states she is only having minimal pain. Awaiting discharge. She can follow-up as an outpatient with me in a couple weeks. Surgery Progress Note: Obj - Vital signs Vital signs: Vital Signs - Most Recent Temp Pulse Resp BP Pulse Ox 98.3 F 58 L 20 130/69 97 04/05/19 08:00 04/05/19 08:00 04/05/19 08:00 04/05/19 08:00 04/05/19 08:00 Surgery Progress Note: Results - Labs Result Diagrams: 04/04/19 08:09 04/04/19 08:09 Lab results: Laboratory Results - last 24 hr 04/05/19 04:35 POC Glucose 181 H
--- NOTE | 2019-04-05 10:32 | PDOC.HOSPP ---
- Subjective Encounter Date: 04/05/19 Encounter Time: 10:31 Subjective: Ms. Elliott was seen today in follow-up of diabetic toe infection. She does not have any new complaints. - Objective Vital Signs & Weight: Vital Signs (12 hours) Temp Pulse Resp BP BP Pulse Ox 04/05/19 08:00 98.3 F 58 L 20 130/69 97 04/05/19 07:59 69 130/69 Weight Admit Weight 131 lb 14.4 oz Weight 131 lb 14.4 oz I&O: 04/04/19 04/05/19 04/06/19 06:59 06:59 06:59 Intake Total 1000 Balance 1000 Result Diagrams: 04/04/19 08:09 04/04/19 08:09 Additional Labs: Accuchecks 04/05/19 04/04/19 04/04/19 04:35 20:08 17:18 POC Glucose 181 H 198 H 151 H 04/04/19 11:17 POC Glucose 244 H ROS - Medication Medications: Active Medications Generic Name Dose Route Start Last Admin Trade Name Freq PRN Reason Stop Dose Admin Acetaminophen 650 mg 03/21/19 20:40 04/04/19 20:09 Tylenol PO 650 mg Q4H PRN Administration Headache/Fever/Mild Pain (1-3) Amlodipine Besylate 5 mg 03/28/19 09:00 04/05/19 07:59 Norvasc PO 5 mg DAILY KIAH Administration Amoxicillin/Clavulanate Potassium 875 mg 04/01/19 21:00 04/05/19 07:59 Augmentin PO 875 mg Q12HR KIAH Administration Enoxaparin Sodium 40 mg 03/22/19 09:00 04/05/19 08:00 Lovenox SC 40 mg 0900 KIAH Administration Glipizide 10 mg 03/22/19 07:30 04/05/19 07:59 Glucotrol PO 10 mg BID-AC KIAH Administration Hydralazine HCl 10 mg 03/21/19 20:51 03/30/19 16:06 Apresoline SLOW IVP 10 mg Q4H PRN Administration sbp>160 Insulin Human Lispro 0 units 03/21/19 23:07 04/01/19 20:27 Humalog SC 2 units .BEDTIME SLIDING SC PRN Administration Bedtime Correctional Scale Insulin Human Lispro 0 units 03/23/19 11:41 04/04/19 12:09 Humalog SC 4 unit .MODERATE SLIDING SC PRN Administration Moderate Correctional Scale Lisinopril 2.5 mg 03/24/19 21:00 04/05/19 07:59 Zestril PO 2.5 mg BID KIAH Administration Metformin HCl 500 mg 03/28/19 08:00 04/05/19 07:59 Glucophage PO 500 mg QAM-WM KIAH Administration Saccharomyces Boulardii 250 mg 03/25/19 09:00 04/05/19 07:59 Florastor PO 250 mg DAILY KIAH Administration Sodium Chloride 10 ml 03/25/19 21:00 04/05/19 08:00 Flush - Normal Saline IVF 10 ml Q12HR KIAH Administration Sodium Chloride 10 ml 03/25/19 14:09 03/31/19 11:51 Flush - Normal Saline IVF 10 ml PRN PRN Administration Saline Flush Tramadol HCl 50 mg 03/31/19 21:34 04/01/19 20:28 Ultram PO 50 mg Q4H PRN Administration Moderate Pain (4-6) Tramadol HCl 100 mg 03/31/19 21:37 04/03/19 20:14 Ultram PO 100 mg Q4H PRN Administration Severe Pain (7-10) - Exam Eye: PERRL, anicteric sclera Heart: RRR, no murmur, no gallops, no rubs, normal peripheral pulses Respiratory: CTAB, no wheezes, no rales, no ronchi, normal chest expansion Gastrointestinal: soft, non-tender, non-distended, normal bowel sounds, no palpable masses, no hepatomegaly, no splenomegaly Extremities: no cyanosis, no clubbing, no edema Skin: normal turgor Hosp A/P (1) Toe osteomyelitis, right Code(s): M86.9 - OSTEOMYELITIS, UNSPECIFIED Status: Acute (2) Diabetes type 2, uncontrolled Code(s): E11.65 - TYPE 2 DIABETES MELLITUS WITH HYPERGLYCEMIA Status: Chronic Qualifiers: Glycemic state: with hyperglycemia Qualified Code(s): E11.65 - Type 2 diabetes mellitus with hyperglycemia (3) Hypertension Code(s): I10 - ESSENTIAL (PRIMARY) HYPERTENSION Status: Chronic Qualifiers: Hypertension type: essential hypertension Qualified Code(s): I10 - Essential (primary) hypertension (4) ELIS (acute kidney injury) Code(s): N17.9 - ACUTE KIDNEY FAILURE, UNSPECIFIED Status: Resolved - Plan * Osteomyelitis of the toes on the right foot due to Diabetes mellitus- will continue Augmentin * Continue local wound care - wound vac is in place * Surgery assessment noted * DM - blood glucose is stable * HTN- blood pressure is stable * Arrangements have been made for transfer to [facility]
[2019-04-05 12:12] VITALS: BP 140/63; TEMP 98.8
[2019-04-05] MEDS: HumaLOG 300 UNITS/3 ML VIAL SC PRN (12:55)
== END 2019-04-05 15:03 | DRG 616 ==
LOC: ERS 17:06 → T4-B 19:20
PROVIDERS: ADMIT Hospitalist; ATTEND Hospitalist
PROC: 0Y6T0Z0 Detachment at Right 3rd Toe, Complete, Open Approach (ICD-10-PCS; principal; 2019-03-30)
DX: E11.69 Type 2 diabetes mellitus with other specified complication (principal); A41.9 Sepsis, unspecified organism; M86.171 Other acute osteomyelitis, right ankle and foot; L03.115 Cellulitis of right lower limb; N17.9 Acute kidney failure, unspecified; E11.65 Type 2 diabetes mellitus with hyperglycemia; E78.5 Hyperlipidemia, unspecified; N18.3 Chronic kidney disease, stage 3 (moderate); I12.9 Hypertensive chronic kidney disease with stage 1 through stage 4 chronic kidney disease, or unspecified chronic kidney disease; E11.621 Type 2 diabetes mellitus with foot ulcer; L97.519 Non-pressure chronic ulcer of other part of right foot with unspecified severity; K46.9 Unspecified abdominal hernia without obstruction or gangrene; Z79.84 Long term (current) use of oral hypoglycemic drugs; Z79.899 Other long term (current) drug therapy
CPT/HCPCS: 36415; 36416; 80048; 80053; 80202; 82010; 83036; 83605; 84484; 85025; 85652; 86140; 87040; 87070; 87077; 87186; 87205; 88305; 88311; 90471; 90670; 93005; 96361; 96365; 96367; A4353; G0009; J0360; J0696; J1650; J1815; J2001; J2405; J2543; J2704; J3010; J3370; J3490; J7050